=== PATIENT | female | born 1980 | race Caucasian/White ===

== ENCOUNTER 2021-08-17 12:13 | Emergency (ER) | payer OTHER, SELFPAY ==
[2021-08-17 12:32] VITALS: BP 123/82; PULSE 88; RESP 18; TEMP 37.2; O2SAT 97
[2021-08-17] MEDS: LORazepam (*CRX) 0.5 MG TABLET PO (13:56)
--- NOTE | 2021-08-17 14:05 | PC.NURSE ---
I & D supplies gathered. pt medicated per order. at bedside.
--- NOTE | 2021-08-17 15:44 | ED.GENADULT ---
HPI - General Adult General Chief complaint: Skin/Abscess/Foreign Body Stated complaint: abcess Time Seen by Provider: 08/17/21 12:35 Source: patient Mode of arrival: ambulatory Limitations: no limitations History of Present Illness HPI narrative: Patient presents for evaluation of painful lesion to the left axillary region for awhile . She cannot provide me a specific time of symptom onset. She cannot identify any precipitating event. Pain is sharp, 10/10 in severity and without radiation. She states over the course of the past few days it became larger in size. She states that the area is actively draining purulent material. No fever, chills, nausea, vomiting. She is not diabetic. She has not tried any therapies to assist with her symptoms. No additional complaints or concerns. Related Data Allergies Allergy/AdvReac Type Severity Reaction Status Date / Time prednisone Allergy Unknown Nausea and Verified 08/17/21 12:39 Vomiting Review of Systems Review of Systems: CONSTITUTIONAL: Denies fever, chills, or sweats. EYES: Denies visual changes, redness, or discharge. ENT: Denies rhinorrhea, congestion, sore throat, or otalgia. CARDIOVASCULAR: Denies chest pain, palpitations, or edema. RESPIRATORY: Denies cough or dyspnea. GASTROINTESTINAL: Denies abdominal pain, nausea, vomiting, or diarrhea. GENITOURINARY: Denies dysuria or hematuria. SKIN: Reports draining lesion to the left axilla with associated redness MUSCULOSKELETAL: Reports pain to left axillary region. Denies back pain, joint pain NEUROLOGIC: Denies headache, numbness, dizziness, or weakness. PSYCHIATRIC: Denies anxiety or depression. [facility] Past Medical History Medical History No pertinent past medical history Surgical History Surgical History (Updated 08/17/21 @ 17:00 by KATHLEEN Taylor, TANNER) History of History of tonsillectomy History of tubal ligation Family History Family History Mother No pertinent family history Social History Social History Alcohol intake: never Substance use: never Gender identity (if verbalized by the patient): Female Sexual Orientation (if Verbalized by the Patient): Straight or Heterosexual Spiritual care concerns: No Exam Narrative: GENERAL: Well-appearing, well-nourished, and in no acute distress. HEAD: Normocephalic, atraumatic. EYES: PERRLA and EOMI. ENT: Nares clear, no rhinorrhea or epistaxis. Mucous membranes moist. Oropharynx without tonsillar hypertrophy exudate or other lesions. Bilateral TMs pearly [place] nonbulging NECK: Supple. No adenopathy or masses. No carotid bruits or JVD CHEST: Clear to auscultation. No respiratory distress. No wheezes rales or rhonchi HEART: Regular rate and rhythm. No murmur heard. Normal peripheral pulses. ABDOMEN: Soft, nontender, nondistended, normal active bowel sounds. EXTREMITIES: Normal range of motion. No edema. SKIN: Approximately 5 cm area of raised erythema with underlying fluctuance which is actively draining purulent fluid. There is approximately 8 cm area of surrounding induration. Area is tender to palpation. NEURO: No focal deficits. Alert and oriented x3. PSYCH: Normal mood and affect. Course Course Emergency Course: This is a 41-year-old female that presented with complaints of a painful swollen lesion to the left axillary region which is now erythematous and actively draining. On physical exam. She has a cutaneous abscess. After obtaining informed consent I&D was performed and this was actually an infected sebaceous cyst. Wound was packed. Patient was advised she needs to follow-up with surgery or dermatology to have cyst wall removed after completion of antibiotic therapy. Patient will be discharged with Bactrim, Keflex, [place] and should return for any
--- NOTE | 2021-08-17 16:33 | PC.NURSE ---
auto appraiser at bedside for I & D
[2021-08-17] MEDS: MORPHINE SULFATE (*CRX) 2 MG/ML INJ (16:57)
[2021-08-17 17:32] VITALS: BP 148/74; PULSE 89; RESP 18; O2SAT 99
== END 2021-08-17 17:33 | disposition home or self-care (01) ==
PROVIDERS: Emergency Provider Nurse Practitioner; PCP Nurse Practitioner Family
DX: L72.3 Sebaceous cyst (principal); L08.9 Local infection of the skin and subcutaneous tissue, unspecified
CPT/HCPCS: 10061; 87070; 87205; 99283; A9270; J2270

== ENCOUNTER 2022-05-25 08:56 | Outpatient (CLI) | payer OTHER, SELFPAY ==
--- NOTE | 2022-05-25 11:30 | NEURO_ITS ---
Impression: # Complains of numbness of hands. # Bilateral Carpal Tunnel Syndrome, right more than left. # No ulnar neuropathy. # Needle/EMG exam not requested. Nerve Conduction Studies Anti Sensory Summary Table Stim Site NR Peak (ms) P-T Amp (?V) Site1 Site2 Delta-P (ms) Dist (cm) Calin (m/s) Left Median Anti Sensory (2-3nd Digit) Wrist 3.9 47.9 Wrist 2-3nd Digit 3.9 14.0 36 Wrist 4.2 63.2 Wrist 2-3nd Digit 3.9 14.0 36 Right Median Anti Sensory (2-3nd Digit) Wrist 4.8 51.4 Wrist 2-3nd Digit 4.8 14.0 29 Wrist 5.0 34.4 Wrist 2-3nd Digit 4.8 14.0 29 Left Radial Anti Sensory (Base 1st Digit) Wrist 1.7 56.6 Wrist Base 1st Digit 1.7 0.0 Right Radial Anti Sensory (Base 1st Digit) Wrist 2.0 43.7 Wrist Base 1st Digit 2.0 0.0 Left Ulnar Anti Sensory (5th Digit) Wrist 2.4 74.5 Wrist 5th Digit 2.4 14.0 58 Right Ulnar Anti Sensory (5th Digit) Wrist 2.5 71.7 Wrist 5th Digit 2.5 14.0 56 Motor Summary Table Stim Site NR Onset (ms) O-P Amp (mV) Site1 Site2 Delta-0 (ms) Dist (cm) Calin (m/s) Left Median Motor (Abd Poll Brev) Wrist 3.9 2.4 Elbow Wrist 4.5 27.0 60 Elbow 8.4 4.4 Right Median Motor (Abd Poll Brev) Wrist 5.1 3.5 Elbow Wrist 3.5 23.0 66 Elbow 8.6 3.0 Left Ulnar Motor (Abd Dig Minimi) Wrist 2.2 6.2 A Elbow Wrist 4.5 27.0 60 A Elbow 6.7 5.7 Right Ulnar Motor (Abd Dig Minimi) Wrist 2.2 6.9 A Elbow Wrist 4.5 27.0 60 A Elbow 6.7 4.7 F Wave Studies NR F-Lat (ms) L-R F-Lat (ms) Left Median (Mrkrs) (Abd Poll Brev) 26.39 2.54 Right Median (Mrkrs) (Abd Poll Brev) 28.92 2.54 Left Ulnar (Mrkrs) (Abd Dig Min) 25.43 0.00 Right Ulnar (Mrkrs) (Abd Dig Min) 25.43 0.00 MTDD
== END 2022-05-25 08:57 | disposition home or self-care (01) ==
PROVIDERS: PCP Nurse Practitioner Family; Visit Provider Physician Assistant
DX: R20.2 Paresthesia of skin (principal); G56.03 Carpal tunnel syndrome, bilateral upper limbs
CPT/HCPCS: 95911

== ENCOUNTER 2022-09-18 22:57 | Emergency (ER) | payer OTHER, SELFPAY ==
--- NOTE | ~2022-09-18 | CT_ITS ---
EXAMINATION: CT abdomen pelvis w con DATE: 09/19/2022 02:58 INDICATION: Epigastric and upper abdominal pain TECHNIQUE: Computed tomography (CT) of the abdomen and pelvis was performed with 100 cc Omnipaque 350 intravenous contrast. The dose-length product was 1376.34 mGy-cm. Automated exposure control and ite rative reconstruction technique were employed. COMPARISON: CT dated 08/12/2017. FINDINGS: There are groundglass opacities in the lung bases. Heart size normal. No significant pleura l or pericardial effusion. Status post cholecystectomy with expected prominence of the bile ducts. Th e liver, spleen, pancreas, adrenal glands and kidneys are unremarkable. Status post cholecystectomy. Ureters are normal in course and caliber. No hydronephrosis. There are thickened loops of jejunum wit h mucosal enhancement, suspicious for enteritis. No obstruction. Colonic diverticulosis without evide nce for diverticulitis. No free air or free fluid. The spleen, pancreas, adrenal glands are unremarka ble. No significant vascular abnormality. No lymphadenopathy. IMPRESSION: 1. Thickened enhancing loops of jejunum, suspicious for enteritis. Clinically correlate. Reviewed, dictated and finalized at location A. MACHINE OPERATOR IMPRESSION: 1. Thickened enhancing loops of jejunum, suspicious for enteritis. Clinically c hardy.
[2022-09-18 23:51] VITALS: BP 112/72; PULSE 77; TEMP 35.8; O2SAT 97
[2022-09-19] VITALS: BP 109/63; PULSE 84; RESP 22; O2SAT 100
--- NOTE | 2022-09-19 | PC.NURSE ---
This RN brought pt. back to room via wheelchair. RN instructed pt. pt. needs to get into bed. pt. not answering RN. pt. family member is calling pt. name, pt. not answering. RN sternal rubbed pt. pt. responded to painful stimuli and safely assisted to bed
[2022-09-19] MEDS: SODIUM CHLORIDE 0.9% IV 1,000 ML 999 ML IV CONT (00:36)
[2022-09-19] MEDS: ONDANSETRON INJ 4 MG/2 ML VIAL IV PUSH (00:36)
[2022-09-19] MEDS: MORPHINE SULFATE (*CRX) 4 MG/ML INJ IV PUSH ×2 (00:37→02:19)
[2022-09-19 00:45] LABS: Hematocrit 50.4 % (37.0-47.0); Hemoglobin 16.8 g/dL (12.0-15.0); Immature Platelet Fraction Pct 2.4 % (0.9-11.2); Mean Corpuscular HGB Conc 33.3 g/dl (32-36); Mean Corpuscular Hemoglobin 30.3 pg (26-34); Mean Platelet Volume 9.5 fl (7.4-10.4); Platelet Count Result 273 k/mm3 (150-375); Red Blood Count 5.54 M/mm3 (4.2-5.4); Red Cell Distribution Width 13.8 % (11.5-14.5); White Blood Count 18.3 K/mm3 (4.5-10.0)
[2022-09-19 00:59] LABS: Alanine Aminotransferase 24 U/L (6-35); Albumin Level 4.5 g/dL (3.5-5.1); Alkaline Phosphatase 66 U/L (38-126); Anion Gap 5 mmol/L (8-16); Aspartate Amino Transferase 24 U/L (14-36); Bilirubin,Total 0.9 mg/dL (0.2-1.3); Blood Urea Nitrogen 20 mg/dL (7-17); Calcium 8.8 mg/dL (8.4-10.2); Carbon Dioxide 28 mmol/L (22-30); Chloride 101 mmol/L (98-107); Estimated CRCL calculation 91 ml/min; Estimated Glomerular Filt Rate > 60; Ethanol < 10 mg/dL (<10); Glucose 137 mg/dL (65-110); Lipase 42 U/L (23-300); Potassium 4.1 mmol/L (3.4-5.0); Sodium 134 mmol/L (137-145)
[2022-09-19 01:28] LABS: Band Neutrophils Percent 23 % (0-6); Eosinophils Absolute Manual 0.18 K/mm3 (0.02-0.5); Eosinophils Percent Manual 1 % (0-4); Lymphocytes Absolute Manual 0.73 K/mm3 (1.1-4.5); Monocytes Absolute Manual 0.36 K/mm3 (0.1-0.90); Monocytes Percent Manual 2 % (3-9); Myelocytes Percent 1 %; Neutrophils Absolute Manual 16.83 K/mm3 (1.7-7.2); Neutrophils Percent Manual 69 % (46-73); Total Cells Counted 100
[2022-09-19 01:29] LABS: Platelet Estimate Adequate (Adequate)
[2022-09-19 01:30] VITALS: BP 132/87; PULSE 102; RESP 14; O2SAT 100
[2022-09-19 01:30] LABS: Atypical Lymphocytes Present; Schistocytes None Seen (NORMAL)
--- NOTE | 2022-09-19 01:52 | PC.NURSE ---
pt. requesting pain medications. ERP made aware. no further orders at this time
[2022-09-19] MEDS: DICYCLOMINE HCL INJ 20 MG/2 ML VIAL IM (02:08)
[2022-09-19 02:16] LABS: Add Urine Microscopic? YES; Appearance Urine Clear (Clear); Bilirubin Urine Negative (Negative); Blood Urine 2+ (Negative); Color Urine Brown (Yellow); Glucose Urine UA Negative (Negative); Ketones Urine Negative (Negative); Leukocyte Esterase Ur Negative LEU/UL (Negative); Nitrate Urine Negative (Negative); Protein Urine Trace mg/dL (Negative); Specific Grav Ur 1.025 (1.001-1.035); Urobilinogen Urine 0.2 mg/dL (<2.0); pH Urine 5.5 (5.0-9.0)
[2022-09-19 02:19] LABS: Bacteria Urine Trace /hpf; Mucus Urine Few /lpf; Squamous Epithelial Cell Urine Occasional /hpf (Few); WBC Urine 0-3 /hpf
[2022-09-19] MEDS: PROMETHAZINE HCL 25 MG/ML AMPUL 12.5 MG IV PUSH (02:19)
[2022-09-19 03:07] VITALS: BP 130/74; PULSE 100; RESP 19; O2SAT 99
--- NOTE | 2022-09-19 04:18 | ED.GENADULT ---
HPI - General Adult General Chief complaint: Nausea/Vomiting/Diarrhea Stated complaint: N & V Possible ETOH Time Seen by Provider: 09/19/22 00:15 History of Present Illness HPI narrative: Patient is a 42-year-old female who presents ER with sudden onset nausea and vomiting. Associate with diarrhea. Reports a family member had similar symptoms that lasted 24 hours. No blood in her stool. Denies fevers or chills or sweats. Has diffuse abdominal cramping. No aggravating or alleviating factors. Related Data Allergies Allergy/AdvReac Type Severity Reaction Status Date / Time prednisone Allergy Unknown Nausea and Verified 08/17/21 12:39 Vomiting Review of Systems Review of Systems: All systems reviewed & are unremarkable except as noted in HPI and below Constitutional: Constitutional: Denies chills, Reports fatigue and Denies fever(s) ENT: Denies nasal congestion and Denies sore throat Cardiovascular: Cardiovascular: Denies chest pain, Denies rapid heart rate and Denies radiating jaw, neck or arm pain Respiratory: Respiratory: Denies cough and Denies dyspnea Gastrointestinal: Gastrointestinal: Reports abdominal pain, Reports diarrhea, Reports nausea and Reports vomiting PMFSH Past Medical History Medical History No pertinent past medical history Surgical History Surgical History (Updated 08/17/21 @ 17:00 by Pravin Wilde, KATHLEEN, ) History of History of tonsillectomy History of tubal ligation Family History Family History Mother No pertinent family history Social History Social History Alcohol intake: never Substance use: never Gender identity (if verbalized by the patient): Female Sexual Orientation (if Verbalized by the Patient): Straight or Heterosexual Spiritual care concerns: No Exam Narrative: GENERAL: Uncomfortable-appearing, well-nourished, and in mild distress. HEAD: Normocephalic, atraumatic. ENT: Mucous membranes moist. NECK: Supple. CHEST: Clear to auscultation. No respiratory distress. HEART: Regular rate and rhythm. Normal peripheral pulses. ABDOMEN: Soft, diffusely tender without guarding, nondistended. EXTREMITIES: Normal range of motion. No edema. SKIN: Warm, dry, no rash. NEURO: Alert and oriented x3. PSYCH: Normal mood and affect. Course Course Emergency Course: Patient received multiple rounds of pain medicine and is now sleeping. CT evaluation shows no acute surgical or life-threatening process within the abdomen. Patient has been hydrated. Patient felt appropriate for discharge home. Vital Signs Vital signs: Vital Signs Temperature 96.4 F L 09/18/22 23:51 Pulse Rate 77 09/18/22 23:51 Blood Pressure 112/72 09/18/22 23:51 Pulse Oximetry 97 09/18/22 23:51 Oxygen Delivery Room Air 09/18/22 23:51 Temperature 96.4 F L 09/18/22 23:51 Pulse Rate 100 09/19/22 03:07 Respiratory Rate 19 09/19/22 03:07 Blood Pressure 130/74 09/19/22 03:07 Pulse Oximetry 99 09/19/22 03:07 Oxygen Delivery Room Air 09/18/22 23:51 Medical Decision Making Vital Signs Vital Signs: Vital Signs Temperature 96.4 F L 09/18/22 23:51 Pulse Rate 77 09/18/22 23:51 Blood Pressure 112/72 09/18/22 23:51 Pulse Oximetry 97 09/18/22 23:51 Oxygen Delivery Room Air 09/18/22 23:51 Temperature 96.4 F L 09/18/22 23:51 Pulse Rate 100 09/19/22 03:07 Respiratory Rate 19 09/19/22 03:07 Blood Pressure 130/74 09/19/22 03:07 Pulse Oximetry 99 09/19/22 03:07 Oxygen Delivery Room Air 09/18/22 23:51 Lab Data 09/19/22 00:34 09/19/22 00:34 Labs: Lab Results 09/19/22 09/19/22 09/19/22 Range/Units 00:34 00:34 00:34 WBC 18.3 H (4.5-10.0) K/mm3 RBC 5.54 H (4.2-5.4) M/mm3 Hgb 16.8 H (
== END 2022-09-19 04:45 | disposition home or self-care (01) ==
PROVIDERS: Emergency Provider Emergency Medicine; PCP Physician Assistant
DX: K52.9 Noninfective gastroenteritis and colitis, unspecified (principal)
CPT/HCPCS: 36415; 74177; 80053; 80307; 81001; 83690; 85025; 85055; 96361; 96372; 96374; 96375; 96376; 99284; J0500; J2270; J2405; J2550; J7030; Q9967

== ENCOUNTER 2022-10-26 07:56 | Emergency (ER) | payer OTHER, SELFPAY ==
--- NOTE | ~2022-10-26 | US_ITS ---
EXAMINATION: US pelvic complete w TV DATE: 10/26/2022 11:29 INDICATION: Ovarian mass. TECHNIQUE: Multiple transabdominal and transvaginal sonographic images of the pelvis were obtained. COMPARISON: CT abdomen and pelvis 10/26/2022 FINDINGS: TRANSABDOMINAL ULTRASOUND: The uterus measures 10.2 x 4.4 x 5.8. There is no free fluid in the pelvis. TRANSVAGINAL ULTRASOUND: The endometrial complex measures 4 mm in thickness. The right ovary 2.9 x 2.0 x 2.0 cm. There is a 2. 9 cm hypoechoic mass in the right adnexa. There is vascular flow in right ovary. The left ovary is no t visualized. IMPRESSION: 1. 2.9 cm hypoechoic mass in the right adnexa, most likely a hemorrhagic cyst. Pelvis ultrasound is r ecommended in 6-12 weeks. Reviewed, dictated and finalized at location A. ER SORTER IMPRESSION: 1. 2.9 cm hypoechoic mass in the right adnexa, most likely a hemorrhagic cyst. Pelvis ultrasound is recommended in 6-12 weeks.
--- NOTE | ~2022-10-26 | CT_ITS ---
EXAMINATION: CT abdomen pelvis w con DATE: 10/26/2022 09:53 INDICATION: Generalized abdominal pain. Nausea and vomiting. TECHNIQUE: Computed tomography (CT) of the abdomen and pelvis was performed with 100 mL Omnipaque 350 intravenous contrast. Automated exposure control and iterative reconstruction technique were employe d. The dose-length product was 997.31 mGy-cm. COMPARISON: CT abdomen and pelvis 09/19/2022 FINDINGS: The visualized portions of the lung bases demonstrate mild atelectasis. No pleural effusion . The heart size is normal. No pericardial effusion. The liver and gallbladder are normal. There are changes of cholecystectomy. The pancreas, adrenal glands, and right kidney are normal. There is a 4 m m cyst in left kidney. There is diverticulosis of the colon without evidence of diverticulitis. There are no dilated loops of bowel. The appendix is normal. There are no pathologically enlarged lymph no daljit. There is no free intraperitoneal fluid. There is a 3.2 cm mass in right ovary. There is mild tho racic spondylosis. IMPRESSION: 1. 3.2 cm mass in right ovary, most likely a hemorrhagic cyst. Consider ultrasound. Reviewed, dictated and finalized at location D. PTIC METEOROLOGIST IMPRESSION: 1. 3.2 cm mass in right ovary, most likely a hemorrhagic cyst. Consider ultraso und.
[2022-10-26 07:55] VITALS: BP 108/80; PULSE 94; RESP 15; TEMP 36.6; O2SAT 100
[2022-10-26] MEDS: ONDANSETRON INJ 4 MG/2 ML VIAL IV PUSH (08:18)
[2022-10-26] MEDS: SODIUM CHLORIDE 0.9% IV 1,000 ML 999 ML IV CONT (08:18)
[2022-10-26] MEDS: MORPHINE SULFATE (*CRX) 4 MG/ML INJ IV PUSH ×2 (08:19→09:21)
[2022-10-26 08:37] LABS: Basophils Percent Auto 0.1 % (0.2-1.2); Eosinophils Absolute Auto 0.1 K/mm3 (0-0.3); Eosinophils Percent Auto 0.5 % (0-4.4); Hematocrit 45.5 % (37.0-47.0); Hemoglobin 15.1 g/dL (12.0-15.0); Immature Granulocyte Absolute 0.09 K/mm3 (0.00-0.031); Immature Granulocyte Percent A 0.6 % (0-0.5); Immature Platelet Fraction Pct 2.1 % (0.9-11.2); Lymphocytes Absolute Auto 1.05 K/mm3 (0.9-3.2); Lymphocytes Percent Auto 7.2 % (18.3-44.2); Mean Corpuscular HGB Conc 33.2 g/dl (32-36); Mean Corpuscular Hemoglobin 30.4 pg (26-34); Mean Corpuscular Volume 91.5 fl (80-100); Mean Platelet Volume 9.2 fl (7.4-10.4); Monocytes Absolute Auto 0.7 K/mm3 (0.1-0.6); Monocytes Percent Auto 4.5 % (2.6-8.5); Neutrophils Absolute Auto 12.7 K/mm3 (1.3-6.7); Neutrophils Percent Auto 87.1 % (45.5-73.1); Platelet Count Result 265 k/mm3 (150-375); Red Blood Count 4.97 M/mm3 (4.2-5.4); Red Cell Distribution Width 14.3 % (11.5-14.5); White Blood Count 14.6 K/mm3 (4.5-10.0)
--- NOTE | 2022-10-26 08:39 | ED.ABDPAIN ---
HPI - Abdominal Pain General Chief Complaint: Abdominal Pain Stated Complaint: abd pain History of Present Illness HPI narrative: Patient is a 42-year-old female who presents ER with nausea/vomiting/diarrhea. Began yesterday evening at 5 PM. No fevers or chills or sweats. No known sick contacts. She reports she is on day 10 of COVID. She has no respiratory complaints. Had not been having diarrhea previously with her COVID infection. She is found no alleviating factors. Related Data Allergies Allergy/AdvReac Type Severity Reaction Status Date / Time prednisone AdvReac Unknown Nausea and Verified 10/26/22 08:18 Vomiting Review of Systems Review of Systems: All systems reviewed & are unremarkable except as noted in HPI and below Constitutional: Constitutional: Denies chills, Reports fatigue and Denies fever(s) ENT: Denies nasal congestion and Denies sore throat Cardiovascular: Cardiovascular: Denies chest pain Respiratory: Respiratory: Denies cough and Denies dyspnea Gastrointestinal: Gastrointestinal: Reports abdominal pain (Cramping), Reports diarrhea, Reports nausea and Reports vomiting Genitourinary: Genitourinary: Denies nocturia and Denies dysuria [facility] Past Medical History Medical History No pertinent past medical history Surgical History Surgical History (Updated 08/17/21 @ 17:00 by Pravin Wilde, KATHLEEN, ) History of History of tonsillectomy History of tubal ligation Family History Family History Mother No pertinent family history Social History Social History Alcohol intake: never Substance use: never Gender identity (if verbalized by the patient): Female Sexual Orientation (if Verbalized by the Patient): Straight or Heterosexual Spiritual care concerns: No Exam Narrative: GENERAL: Well-appearing, well-nourished, and in no acute distress. HEAD: Normocephalic, atraumatic. NECK: Supple. CHEST: Clear to auscultation. No respiratory distress. HEART: Regular rate and rhythm. Normal peripheral pulses. ABDOMEN: Soft, nontender, nondistended. EXTREMITIES: Normal range of motion. No edema. SKIN: Warm, dry, no rash. NEURO: Alert and oriented x3. PSYCH: Normal mood and affect. Course Course Emergency Course: Patient's pain improved significantly but still has occasional cramping. Patient has nausea but no persistent vomiting. Discharge home with supportive care. Discussed ovarian cyst and need for follow-up. Patient and significant other verbalized understanding. Vital Signs Vital signs: Vital Signs Temperature 97.9 F 10/26/22 07:55 Pulse Rate 94 10/26/22 07:55 Respiratory Rate 15 10/26/22 07:55 Blood Pressure 108/80 10/26/22 07:55 Pulse Oximetry 100 10/26/22 07:55 Temperature 97.9 F 10/26/22 07:55 Pulse Rate 86 10/26/22 12:05 Respiratory Rate 14 10/26/22 12:05 Blood Pressure 100/62 10/26/22 12:05 Pulse Oximetry 99 10/26/22 12:05 MDM - Abdominal Pain Lab Data 10/26/22 08:24 10/26/22 08:24 Labs: Lab Results 10/26/22 10/26/22 10/26/22 Range/Units 08:24 08:24 09:03 WBC 14.6 H (4.5-10.0) K/mm3 RBC 4.97 (4.2-5.4) M/mm3 Hgb 15.1 H (12.0-15.0) g/dL Hct 45.5 (37.0-47.0) % MCV 91.5 (80-100) fl MCH 30.4 (26-34) pg MCHC 33.2 (32-36) g/dl RDW 14.3 (11.5-14.5) % Plt Count 265 (150-375) k/mm3 MPV 9.2 (7.4-10.4) fl Immature Gran % (Auto) 0.6 H (0-0.5) % Neut % (Auto) 87.1 H (45.5-73.1) % Lymph % (Auto) 7.2 L (18.3-44.2) % [place] % (Auto) 4.5 (2.6-8.5) % Eos % (Auto) 0.5 (0-4.4) % Baso % (Auto) 0.1 L (0.2-1.2) % Lymph # (Auto) 1.05 (0.9-3.2) K/mm3 [place] # (Auto) 0.7 H (0.1-0.6) K/mm3 Eos # (Auto) 0.1 (0-0.3) K/mm3
[2022-10-26 08:45] LABS: Alanine Aminotransferase 31 U/L (6-35); Albumin Level 3.7 g/dL (3.5-5.1); Alkaline Phosphatase 47 U/L (38-126); Anion Gap 4 mmol/L (8-16); Aspartate Amino Transferase 23 U/L (14-36); Bilirubin,Total 0.6 mg/dL (0.2-1.3); Blood Urea Nitrogen 19 mg/dL (7-17); Calcium 7.9 mg/dL (8.4-10.2); Carbon Dioxide 28 mmol/L (22-30); Chloride 103 mmol/L (98-107); Estimated CRCL calculation 126 ml/min; Estimated Glomerular Filt Rate > 60; Glucose 112 mg/dL (65-110); Lipase 63 U/L (23-300); Sodium 135 mmol/L (137-145)
[2022-10-26 09:16] LABS: Appearance Urine Clear (Clear); Bacteria Urine Trace /hpf; Bilirubin Urine Negative (Negative); Blood Urine Trace-intact (Negative); Color Urine Yellow (Yellow); Glucose Urine UA Negative (Negative); Ketones Urine Negative (Negative); Leukocyte Esterase Ur Negative LEU/UL (Negative); Mucus Urine Rare /lpf; Nitrate Urine Negative (Negative); Protein Urine Negative (Negative); Squamous Epithelial Cell Urine Rare /hpf (Few); Urobilinogen Urine 0.2 mg/dL (<2.0); WBC Urine 0-3 /hpf; pH Urine 8.5 (5.0-9.0)
[2022-10-26 09:28] LABS: Add Urine Microscopic? YES
[2022-10-26 09:57] VITALS: BP 100/66; PULSE 96; RESP 16; O2SAT 100
[2022-10-26 10:57] VITALS: BP 132/92; PULSE 74; RESP 16; O2SAT 100
[2022-10-26] MEDS: DICYCLOMINE HCL INJ 20 MG/2 ML VIAL IM (11:58)
[2022-10-26] MEDS: PROMETHAZINE HCL 25 MG/ML AMPUL 12.5 MG IV PUSH (12:02)
[2022-10-26 12:05] VITALS: BP 100/62; PULSE 86; RESP 14; O2SAT 99
== END 2022-10-26 12:17 | disposition home or self-care (01) ==
PROVIDERS: Emergency Provider Emergency Medicine; PCP Physician Assistant
DX: N83.201 Unspecified ovarian cyst, right side (principal); R11.2 Nausea with vomiting, unspecified; Z86.16 Personal history of COVID-19
CPT/HCPCS: 36415; 74177; 76830; 76856; 80053; 81001; 81025; 83690; 85025; 85055; 96361; 96372; 96374; 96375; 96376; 99284; J0500; J2270; J2405; J2550; J7030; Q9967

== ENCOUNTER 2023-02-25 12:36 | Emergency (ER) | payer OTHER, SELFPAY ==
[2023-02-25 12:43] VITALS: BP 107/68; PULSE 72; RESP 16; TEMP 36.6; O2SAT 99
[2023-02-25 12:47] VITALS: BP 107/68; PULSE 72; RESP 16; TEMP 36.6; O2SAT 99
--- NOTE | 2023-02-25 12:59 | ED.SKABFB ---
HPI - Skin/Abscess/Foreign Bdy General Chief complaint: Wound/Laceration Stated complaint: Insect Bite Time Seen by Provider: 02/25/23 12:59 Source: patient Mode of arrival: ambulatory Limitations: no limitations History of Present Illness HPI narrative: 42 yo F presents with c/o itching, burning pain to insect bite x 1 wk. Not applying any OTC meds to treat symptoms. States started at [place] and spreading, now has pustules . All systems reviewed and negative except as noted above. Related Data Allergies Allergy/AdvReac Type Severity Reaction Status Date / Time prednisone AdvReac Unknown Nausea and Verified 02/25/23 12:45 Vomiting Review of Systems Review of Systems: CONSTITUTIONAL: Denies fever, chills, or sweats. EYES: Denies visual changes, redness, or discharge. ENT: Denies rhinorrhea, congestion, sore throat, or otalgia. CARDIOVASCULAR: Denies chest pain, palpitations, or edema. RESPIRATORY: Denies cough or dyspnea. GASTROINTESTINAL: Denies abdominal pain, nausea, vomiting, or diarrhea. GENITOURINARY: Denies dysuria or hematuria. SKIN: reports red pustular rash from insect bite with itching. MUSCULOSKELETAL: Denies back pain, joint pain, or myalgia. NEUROLOGIC: Denies headache, numbness, or weakness. PSYCHIATRIC: Denies anxiety or depression. All other systems reviewed are negative, except as documented in HPI. [facility] Past Medical History Medical History No pertinent past medical history Surgical History Surgical History (Updated 08/17/21 @ 17:00 by KATHLEEN Taylor, TANNER) History of History of tonsillectomy History of tubal ligation Family History Family History Mother No pertinent family history Social History Social History Alcohol intake: never Substance use: never Gender identity (if verbalized by the patient): Female Sexual Orientation (if Verbalized by the Patient): Straight or Heterosexual Spiritual care concerns: No Comments At time of signature, agree with nursing past medical, surgical, social and family history. There is no relevant family history pertinent to the presenting complaint. Exam Narrative: GENERAL: This is a well-nourished, well-developed patient, in no apparent distress. HEAD: normocephalic, atraumatic. EYES: PERRL. Sclera clear/white. Vision is grossly intact. EARS: External ears normal NOSE: External nose normal NECK: Neck supple, non-tender without lymphadenopathy, masses or thyromegaly. CARDIOVASCULAR: Regular rate and rhythm without murmurs, gallops, or rubs. RESPIRATORY: Clear to auscultation. Breath sounds equal bilaterally. No wheezes, rales, or rhonchi. SKIN: warm, Dry, intact with no suspicious lesions, good texture and turgor. erythematous papular rash to lateral aspect right lower extremity with 2 pustular lesions. no fluctuance or drainage. mild warmth on palpation with tenderness. approx. 2x3cm diameter. NEURO: awake, alert, and oriented to person, place and time. There were no obvious focal neurologic abnormalities. EXTREMITIES: No joint tenderness, effusion, or edema noted. Course Course Level of Care: Express Care Visit Vital Signs Vital signs: Vital Signs Temperature 36.6 C 02/25/23 12:43 Pulse Rate 72 02/25/23 12:43 Respiratory Rate 16 02/25/23 12:43 Blood Pressure 107/68 02/25/23 12:43 Pulse Oximetry 99 02/25/23 12:43 Oxygen Delivery Room Air 02/25/23 12:43 Temperature 36.6 C 02/25/23 12:47 Pulse Rate 72 02/25/23 12:47 Respiratory Rate 16 02/25/23 12:47 Blood Pressure 107/68 02/25/23 12:47 Pulse Oximetry 99 02/25/23 12:47 Oxygen Delivery Room Air 02/25/23 12:47 reviewed MDM - Skin/Abscess/Foreign Bdy MDM Narrative Medical decision making narrative: Patient
== END 2023-02-25 13:02 | disposition home or self-care (01) ==
PROVIDERS: Emergency Provider Nurse Practitioner Family; PCP Family Medicine
DX: S80.861A Insect bite (nonvenomous), right lower leg, initial encounter (principal); W57.XXXA Bitten or stung by nonvenomous insect and other nonvenomous arthropods, initial encounter
CPT/HCPCS: 99213; G0463

== ENCOUNTER 2023-09-21 08:50 | Emergency (ER) | payer OTHER, SELFPAY ==
[2023-09-21 09:03] VITALS: BP 121/73; PULSE 66; RESP 16; TEMP 36.7; O2SAT 99
--- NOTE | 2023-09-21 09:44 | ED.GENADULT ---
HPI - General Adult General Chief complaint: Wound/Laceration Stated complaint: Wound Check Source: patient Mode of arrival: ambulatory Limitations: no limitations History of Present Illness HPI narrative: Patient presents for evaluation of painful lesion to the back for the last week. She noted some purulent drainage from it yesterday. No fever, chills, nausea, vomiting. She is not diabetic. No history of similar symptoms. She rates her pain 7/10 severity, without descriptive quality. She is a current everyday smoker. Related Data Allergies Allergy/AdvReac Type Severity Reaction Status Date / Time prednisone AdvReac Unknown Nausea and Verified 02/25/23 12:45 Vomiting Review of Systems Review of Systems: CONSTITUTIONAL: Denies fever, chills, or sweats. EYES: Denies visual changes, redness, or discharge. ENT: Denies rhinorrhea, congestion, sore throat, or otalgia. CARDIOVASCULAR: Denies chest pain, palpitations, or edema. RESPIRATORY: Denies cough or dyspnea. GASTROINTESTINAL: Denies abdominal pain, nausea, vomiting, or diarrhea. GENITOURINARY: Denies dysuria or hematuria. SKIN: Reports painful lesion to the low back. MUSCULOSKELETAL: Denies back pain, joint pain, or myalgia. NEUROLOGIC: Denies headache, numbness, dizziness, or weakness. PSYCHIATRIC: Denies anxiety or depression. [facility] Past Medical History Medical History Infected sebaceous cyst Infected sebaceous cyst No pertinent past medical history Surgical History Surgical History History of History of tonsillectomy History of tubal ligation Family History Family History Mother No pertinent family history Social History Social History (Updated 09/21/23 @ 10:21 by KATHLEEN Taylor, ) Smoking packs per day: 1 Smoking cigarettes per day: 20.0 Smoking status: Current every day smoker Alcohol intake: never Substance use: never Gender identity (if verbalized by the patient): Female Sexual Orientation (if Verbalized by the Patient): Straight or Heterosexual Spiritual care concerns: No Exam Narrative: GENERAL: Well-appearing, well-nourished, and in no acute distress. HEAD: Normocephalic, atraumatic. EYES: PERRLA and EOMI. ENT: Nares clear, no rhinorrhea or epistaxis. Mucous membranes moist. Oropharynx without tonsillar hypertrophy exudate or other lesions. Bilateral TMs pearly [place] nonbulging NECK: Supple. No adenopathy or masses. No carotid bruits or JVD CHEST: Clear to auscultation. No respiratory distress. No wheezes rales or rhonchi HEART: Regular rate and rhythm. No murmur heard. Normal peripheral pulses. ABDOMEN: Soft, nontender, nondistended, normal active bowel sounds. EXTREMITIES: Normal range of motion. No edema. SKIN: There is an approximately 2.5 cm raised fluctuant lesion to the midline of the low back with overlying flaking skin NEURO: No focal deficits. Alert and oriented x3. PSYCH: Normal mood and affect. Course Course Emergency Course: this is a 43-year-old female who presented for evaluation of a painful lesion to her low back. I and D was performed. This appears to be an infected sebaceous cyst as opposed to simple abscess. Wound culture obtained. Wound was packed. Pt tolerated well. will discharge with Bactrim, Keflex and small quantity of [place]. She should follow up with general surgery to have cyst excision after infection has resolved. She should go to the ER for systemic signs of infection or worsening symptoms. Patient in agreement with plan of care. Level of Care: Express Care Visit Vital Signs Vital signs: Vital Signs Temperature 36.7 C 09/21/23 09:03 Pulse Rate 66 09/21/23 09:03 Respiratory Rate 16 09/21/23 09:03 Blood Pressure 121/73 09/21/23 09:03 Pulse Oxim
== END 2023-09-21 10:37 | disposition home or self-care (01) ==
PROVIDERS: Emergency Provider Nurse Practitioner; PCP Family Medicine
DX: L72.3 Sebaceous cyst (principal); F17.210 Nicotine dependence, cigarettes, uncomplicated
CPT/HCPCS: 10061; 87070; 87205; 99213; G0463

== ENCOUNTER 2023-11-01 02:11 | Day surgery (SDC) | payer OTHER, SELFPAY ==
[2023-10-25 14:29] VITALS: BMI 45.6
--- NOTE | 2023-10-25 14:36 | PC.NURSE ---
Addendum entered by Farideh Ha RN 10/25/23 14:42: PT INSTRUCTED TO USE hIBICLENS SOAP WITH HER SHOWER Original Note: Report to the Outpatient Waiting Room, entrance under the stopover pavilion located off [facility], at time 1000 on date 11/01/23_. Planned Procedure Time: _1200_. Time changes happen often and if your time is changed the preop area will call you the afternoon before. - You and your visitor will be asked to self-screen and do not enter if you have any COVID symptoms. - A mask is optional within the hospital at this time. Patients may have clear liquids (water, carbonated beverages, clear teas, apple juice) until 3 hours prior to surgery with a maximum of 20 ounces. - No food from midnight until time of surgery - Infants may have breast milk until 4 hours before surgery, infant formula 6 hours prior to surgery. - Children will be allowed to drink immediately following surgery. If applicable, please bring a bottle or sippy cup to assist with drinking. Juice, water, soda, and popsicles are readily available. For infants on formula, please bring formula the day of surgery. Pacifiers are allowed. Take the following medications with a SIP of water the morning of surgery: NONE DO NOT STOP ANY OF YOUR OTHER PRESCRIPTION MEDICATIONS PRIOR TO SURGERY ?EXCEPT THE FOLLOWING Medications to discontinue per physician NONE Date to take last dose Please no make-up, nail persian, hairspray, perfume, deodorant, or body powder the day of surgery. No jewelry (including any body piercings) or valuables the day of surgery, leave them at home. Please take a shower or bath the night before, or the morning of, surgery with an antibacterial soap. Wear comfortable, loose fitting clothing. Children are encouraged to wear pajamas. - Jewelry must be removed prior to entering the operating room. Rings and piercings that are not removed may be cut off. - The hospital will not accept responsibility for valuables. - Please leave all valuables, including medications, at home the day of surgery. If you are going home after surgery, a licensed otr tanker truck driver must drive you home. - NO public transportation without another adult if you receive anesthesia. - We recommend that an adult stay with you for 24 hours following discharge. - We also recommend that you do not drive, make important decision, drink alcoholic beverages, or take any drugs that were not prescribed by your health care provider for at least 24 hours after your discharge time. For Pediatric surgeries, we recommend two adults accompany the child home. Follow any additional instructions given to you from your surgeon. If you or anyone in your household have experienced Covid symptoms in the past week, please notify your surgeon or the nurse liaison at the phone number below for possible testing. Telephone instructions given to __PATIENT_and asked if any additional questions and then verbalized understanding. Patient advised to call surgeon office or pre surgery nurse liaison [phone] if any additional questions.
--- NOTE | 2023-11-01 08:27 | WPDANESEPPF ---
Anes - Initial Pre Proc Eval Procedure: Operation Date: 11/01/23 12:00 Proposed Procedures p Excision Back Cyst - Gabriel Pal DO Date/Time: 11/01/23 08:27 Surgeon: Gabriel Pal DO Pre Op Diagnosis: 3 cm back cyst Patient Data Age: 43 Gender: F Height: 1.52 m Weight: 106 kg Allergies Allergy/AdvReac Type Severity Reaction Status Date / Time prednisone AdvReac Unknown Nausea and Verified 11/01/23 10:54 Vomiting Home Medications Medication Instructions Recorded Confirmed Type No Home Medications 10/25/23 10/25/23 History Patient hx anesthesia problems: none Family hx anesthesia problems: none Results Review: All pre-operative results and documents have been reviewed as part of the pre-operative evaluation. [facility] Past Medical History Medical History Infected sebaceous cyst Infected sebaceous cyst No pertinent past medical history Surgical History Surgical History History of History of tonsillectomy History of tubal ligation Family History Family History Other Cerebrovascular accident Diabetes mellitus Hypertension Kidney disease Social History Social History Smoking packs per day: 1 Smoking cigarettes per day: 20.0 Years smoked: 15 Smoking pack-years: 15.00 Smoking status: Current every day smoker Tobacco type: cigarettes Alcohol intake: current Alcohol use details: 3 PER YEAR Substance use: never Living arrangements: with family Gender identity (if verbalized by the patient): Female Sexual Orientation (if Verbalized by the Patient): Straight or Heterosexual Spiritual care concerns: No Anes - Eval Final PreProcedure Day of Procedure 11/01/23 08:27 Patient weight: morbidly obese Heart: regular rate and rhythm Lungs: clear to auscultation Airway: Mallampati scale class II Neurological: alert and oriented Last oral intake: >/= 8 hours ASA classification: III Emergent: no Anesthetic plan: proceed Anesthesia type and monitoring: general GIVS and standard monitoring Results Review: All pre-operative results and documents have been reviewed as part of the pre-operative evaluation. Informed Consent: The patient's anesthetic plan and its attendant risks and benefits were discussed with the patient/family/POA. Questions were solicited and answers provided to the satisfaction of the patient/family/POA.
[2023-11-01 10:03] VITALS: BP 111/70; PULSE 89; RESP 20; TEMP 36.8; O2SAT 98
[2023-11-01] MEDS: LACTATED RINGERS 1,000 ML 30 ML IV CONT (10:45)
--- NOTE | 2023-11-01 11:44 | WPDHPUPDATE1 ---
History and Physical Update Update Date/Time: 11/01/23 11:44 History and Physical has been reviewed, including an updated exam of the patient. There are NO changes in the patient's condition. Risks, benefits, and alternatives have been discussed and questions answered. Patient agrees to proceed with procedure.
--- NOTE | 2023-11-01 11:45 | PM.IMHP ---
H&P: HPI History of Present Illness Date/Time: 11/01/23 11:45 Chief Complaint: back cyst Narrative: 43 yo womanpresents for excision of back cyst. she reports no changes since last seen in office. Review of Systems Review of Systems: All systems reviewed & are unremarkable except as noted in HPI and below Constitutional: Constitutional: Denies chills, Denies fever(s), Denies headache(s) and Denies weight loss Eyes: Eyes: Denies change in vision ENT: Denies dizziness, Denies headache(s), Denies neck mass and Denies throat swelling Cardiovascular: Cardiovascular: Denies chest pain, Denies lightheadedness and Denies dyspnea Respiratory: Respiratory: Denies cough, Denies dyspnea and Denies wheezing Gastrointestinal: Gastrointestinal: Denies abdominal pain, Denies change in bowel habits, Denies nausea and Denies vomiting Genitourinary: Genitourinary: Denies hematuria and Denies dysuria Musculoskeletal: Musculoskeletal: Reports as per HPI Integumentary/Breasts: Skin/Breast: Reports as per HPI Neurologic: Denies dizziness and Denies headache(s) Allergic/Immunologic: Allergic/Immunologic: Denies throat swelling and Denies wheezing PMFSH Past Medical History Medical History Infected sebaceous cyst Infected sebaceous cyst No pertinent past medical history Surgical History Surgical History History of History of tonsillectomy History of tubal ligation Family History Family History Other Cerebrovascular accident Diabetes mellitus Hypertension Kidney disease Social History Social History Smoking packs per day: 1 Smoking cigarettes per day: 20.0 Years smoked: 15 Smoking pack-years: 15.00 Smoking status: Current every day smoker Tobacco type: cigarettes Alcohol intake: current Alcohol use details: 3 PER YEAR Substance use: never Living arrangements: with family Gender identity (if verbalized by the patient): Female Sexual Orientation (if Verbalized by the Patient): Straight or Heterosexual Spiritual care concerns: No Meds Home Medications and Allergies Home Medications Medication Instructions Recorded Confirmed Type No Home Medications 10/25/23 10/25/23 History Allergies Allergy/AdvReac Type Severity Reaction Status Date / Time prednisone AdvReac Unknown Nausea and Verified 11/01/23 10:54 Vomiting Vital Signs Vital Signs - 24 hr 11/01/23 10:03 Temperature 36.8 C Pulse Rate 89 Respiratory Rate 20 Blood Pressure 111/70 Pulse Oximetry 98 Oxygen Delivery Room Air Exam Const: General: no acute distress and alert Orientation/consciousness: patient oriented x3 HENMT: Head: normocephalic and atraumatic Ears: hearing grossly normal bilaterally Face/Nose/Sinus: Normal nares present Mouth: Yes Normal oral and palatal mucosa present Eyes: Periorbital: periorbital findings normal Sclera: sclerae normal EOM: EOMs intact bilaterally Neck: Neck: normal visual inspection, no lymphadenopathy and trachea midline Chest: Chest palpation & inspection: normal inspection of the chest Resp: Effort & Inspection: normal respiratory effort Auscultation: clear to auscultation bilaterally Cardio: Jugular venous distension: no JVD Rate: regular rate Rhythm: regular rhythm Heart sounds: S1 normal heart sound present and S2 normal heart sound present Peripheral pulses: Peripheral pulses 2+ throughout GI: Inspection: normal to inspection GI Palp: Yes Soft to palpation, No Tenderness to palpation present (GI), No Guarding due to palpation present (GI) and No Rebound tenderness present Percussion: Yes normal to percussion Auscultation: normal bowel sounds : General: Yes no CVA tenderness Back/Spine/Pelvis: Back: no CVA te
[2023-11-01] MEDS: ceFAZolin 2 GM/D5W 50 ML 2 GM/50 ML BAG IVPB (11:57)
[2023-11-01] MEDS: LIDO 1%/EPINEPHRINE 1:100,000 50 ML VIAL 20 ML INFILTRATE (12:21)
[2023-11-01] MEDS: BACITRACIN OINTMENT 15 GM TUBE 1 APPLIC TOPICAL (12:22)
--- NOTE | 2023-11-01 12:32 | P.OP_ITS ---
Procedure Note - Detailed Date of Procedure 11/01/23 Pre-op Diagnosis 3 cm back cyst Post-op Diagnosis Same Procedure Performed Excision of 3 cm back cyst Surgeon Gabriel Pal, DO Anesthesia MAC and Local ( 1% lidocaine with epinephrine) Indications this is a 43-year-old woman who presented with a back cyst that had previously become swollen and painful. She had presented to an urgent care and incision and drainage was performed. She healed from this and discussions were made with the patient about treatment options and decision was made to proceed with excision of the 3 cm back cyst. Findings The patient had a 3 cm back cyst in the lower midline lumbar region. The cyst was overlying an old tattoo. The cyst was completely excised and sent to the lab for pathology. No other deep underlying abnormalities were noted. Description of Procedure Procedure as well as risks, benefits, and alternatives were discussed with the patient. Written consent was obtained and placed in chart prior to procedure. Patient was brought back to surgical suite. She was placed in left lateral decubitus position on the operating table. Time-out was done to confirm patient and procedure. IV sedation was then administered by the anesthesia department. Her back area was prepped and draped in sterile fashion using chlorhexidine prep. 1% lidocaine with epinephrine was infiltrated locally around the cyst. A 3 cm elliptical incision was then made around the cyst using a 15 blade scalpel. Sharp dissection was carried down through the dermis into the subcutaneous space using the 15 blade scalpel. The cyst was completely excised intact using the 15 blade scalpel. Electrocautery was then used for hemostasis. The wound bed was then inspected and no other abnormalities were noted. The skin edges w ere then reapproximated using 3-0 nylon vertical mattress interrupted sutures. Bacitracin ointment was applied followed by 4 x 4 gauze and Medipore tape. The patient was then awakened from anesthesia and transferred to recovery. Estimated Blood Loss 5 Pathology Yes ( 3 cm back cyst) Complications No immediate complications Condition Stable Disposition Same day [facility] Billing Surgery - Charge Forward: Surgery Billing
[2023-11-01 12:34] VITALS: BP 92/55; PULSE 76; RESP 14; O2SAT 100
[2023-11-01 13:00] VITALS: BP 92/60; PULSE 77; RESP 14
[2023-11-01 13:29] VITALS: BP 114/64; PULSE 77; RESP 16
== END 2023-11-01 13:32 | disposition home or self-care (01) ==
PROVIDERS: PCP Family Medicine; Visit Provider Surgery
PROC: (CPT 11403; principal; 2023-11-01 12:00)
DX: L72.0 Epidermal cyst (principal); F17.210 Nicotine dependence, cigarettes, uncomplicated; E66.01 Morbid (severe) obesity due to excess calories; Z68.41 Body mass index [BMI] 40.0-44.9, adult; Z98.890 Other specified postprocedural states; Z82.49 Family history of ischemic heart disease and other diseases of the circulatory system
CPT/HCPCS: 11403; 88305; A9270; J0690; J2250; J2704; J3010; J7120

== ENCOUNTER 2023-12-27 08:43 | Emergency (ER) | payer OTHER, SELFPAY ==
--- NOTE | ~2023-12-27 | CT_ITS ---
Non-contrast CT scan of the Abdomen and Pelvis Clinical indication: Flank pain Technique: 2.5 mm axial scans were obtained through the abdomen and pelvis without intravenous or or al contrast. Dose reduction technique was used on this scan by utilizing automated exposure control a nd iterative reconstruction technique. The dose-length product (DLP) was 727.05 mGy-cm. COMPARISON: 10/26/2022 Findings: Images through the lung bases reveal stable 4 mm left lower lobe pulmonary nodule. 2 mm nonobstructing right renal stone present. No left renal stone. No ureteral stone or hydronephros is on either side. The liver, spleen, pancreas, and adrenals appear normal. Cholecystectomy clips are present. There is no aortic aneurysm. There is no evidence of bowel obstruction. Normal appendix. Images through the pelvis were performed. There is no evidence of ascites or lymphadenopathy. Urinary bladder unremarkable. No pelvic mass seen. Impression: 2 mm nonobstructing right renal stone. Reviewed, dictated and finalized at [facility]. Impression: 2 mm nonobstructing right renal stone.
[2023-12-27 08:47] VITALS: BP 151/102; PULSE 83; RESP 18; TEMP 36.6; O2SAT 100
--- NOTE | 2023-12-27 09:00 | ED.ABDPAIN ---
HPI - Abdominal Pain General Chief Complaint: Abdominal Pain Stated Complaint: kidney stones Time Seen by Provider: 12/27/23 08:52 Source: patient Mode of arrival: ambulatory Limitations: no limitations History of Present Illness HPI narrative: Francheska is a 43-year-old female patient presenting to the ER today with complaints of left-sided flank pain x4 days. She reports she does have a history of kidney stones in the past. States that the pain is sharp and constant at this time but gets periods of 10-20 minutes of comfort. Rates her pain 10/10. No associated abdominal pain, groin pain, nausea, vomiting, or diarrhea. Denies any fever or chills. Last bowel movement was yesterday and normal for the patient. Related Data Allergies Allergy/AdvReac Type Severity Reaction Status Date / Time prednisone AdvReac Unknown Nausea and Verified 12/27/23 08:50 Vomiting Review of Systems Review of Systems: Pertinent positives per HPI. Patient denies any fever, chills, rash, headache, visual changes, dizziness, cough, runny nose, sore throat, shortness of breath, chest pain, palpitations, nausea, vomiting, diarrhea, constipation, abdominal pain, or any urinary issues. [facility]LY [facility] Past Medical History Medical History Infected sebaceous cyst Infected sebaceous cyst No pertinent past medical history Surgical History Surgical History History of History of tonsillectomy History of tubal ligation Hx of excision of mass Excision of 3 cm back cyst 11/01/23 Family History Family History Other Cerebrovascular accident Diabetes mellitus Hypertension Kidney disease Social History Social History Smoking packs per day: 1 Smoking cigarettes per day: 20.0 Years smoked: 15 Smoking pack-years: 15.00 Smoking status: Current every day smoker Tobacco type: cigarettes Alcohol intake: current Alcohol use details: 3 PER YEAR Substance use: never Living arrangements: with family Gender identity (if verbalized by the patient): Female Sexual Orientation (if Verbalized by the Patient): Straight or Heterosexual Spiritual care concerns: No Comments At the time of my signature, I reviewed and agree with the nursing past medical, surgical, social, and family history. There is no relevant family history pertinent to the patient complaint. Exam Narrative: General: Well-developed, well nourished, in no apparent distress. Head: Normocephalic, atraumatic. Cardio: Regular rate and rhythm, s1 and s2 normal, no murmur appreciated. Resp: Clear to auscultation bilaterally, no rhonchi, rales, wheezing or rubs. Abdomen: Soft, pliable, bowel sounds present in all quadrants, non-tender to palpation, no organomegly, positive left CVAT tenderness. Course Course Emergency Course: Portions of this record may have been created with voice recognition software. Vital Signs Vital signs: Vital Signs Temperature 36.6 C 12/27/23 08:47 Pulse Rate 83 12/27/23 08:47 Respiratory Rate 18 12/27/23 08:47 Blood Pressure 151/102 H 12/27/23 08:47 Pulse Oximetry 100 12/27/23 08:47 Oxygen Delivery Room Air 12/27/23 08:47 Temperature 36.6 C 12/27/23 08:47 Pulse Rate 83 12/27/23 08:47 Respiratory Rate 18 12/27/23 08:47 Blood Pressure 151/102 H 12/27/23 08:47 Pulse Oximetry 100 12/27/23 08:47 Oxygen Delivery Room Air 12/27/23 08:47 Vital signs reviewed MDM - Abdominal Pain MDM Narrative Medical decision making narrative: At the time of visit patient is resting comfortably on the exam table. Patient appears to be nontoxic. Labs: CBC is unremarkable, chemistry panel is unremarkable, lipase 39, urinalysis shows cloudy urine with 2+ blood and 11-20 r
[2023-12-27] MEDS: SODIUM CHLORIDE 0.9% IV 1,000 ML 999 ML IV CONT (09:20)
[2023-12-27] MEDS: ONDANSETRON INJ 4 MG/2 ML VIAL IV PUSH (09:20)
[2023-12-27 09:21] LABS: Basophils Percent Auto 0.5 % (0.2-1.2); Eosinophils Absolute Auto 0.2 K/mm3 (0-0.3); Hematocrit 45.2 % (37.0-47.0); Hemoglobin 14.5 g/dL (12.0-15.0); Immature Granulocyte Absolute 0.03 K/mm3 (0.00-0.031); Immature Granulocyte Percent A 0.4 % (0-0.5); Lymphocytes Absolute Auto 2.22 K/mm3 (0.9-3.2); Lymphocytes Percent Auto 29.4 % (18.3-44.2); Mean Corpuscular HGB Conc 32.1 g/dl (32-36); Mean Corpuscular Hemoglobin 29.5 pg (26-34); Mean Corpuscular Volume 91.9 fl (80-100); Monocytes Absolute Auto 0.5 K/mm3 (0.1-0.6); Monocytes Percent Auto 6.5 % (2.6-8.5); Neutrophils Absolute Auto 4.6 K/mm3 (1.3-6.7); Neutrophils Percent Auto 61.2 % (45.5-73.1); Platelet Count Result 320 k/mm3 (150-375); Red Blood Count 4.92 M/mm3 (4.2-5.4); Red Cell Distribution Width 13.6 % (11.5-14.5); White Blood Count 7.6 K/mm3 (4.5-10.0)
[2023-12-27] MEDS: MORPHINE SULFATE (*CRX) 4 MG/ML INJ IV PUSH (09:21)
[2023-12-27 09:35] LABS: Appearance Urine Cloudy (Clear); Bacteria Urine 4+ /hpf; Bilirubin Urine Negative (Negative); Blood Urine 2+ (Negative); Color Urine Yellow (Yellow); Glucose Urine UA Negative (Negative); Ketones Urine Negative (Negative); Leukocyte Esterase Ur Negative LEU/UL (Negative); Nitrate Urine Negative (Negative); Non Pathogenic Casts 0-2; Protein Urine Negative (Negative); Specific Grav Ur 1.018 (1.001-1.035); Squamous Epithelial Cell Urine Moderate /hpf (Few); WBC Urine 0-5 /hpf (0-3)
[2023-12-27 09:50] LABS: Alanine Aminotransferase 27 U/L (6-35); Albumin Level 4.1 g/dL (3.5-5.1); Alkaline Phosphatase 67 U/L (38-126); Anion Gap 7 mmol/L (4-12); Aspartate Amino Transferase 32 U/L (14-36); Bilirubin,Total 0.5 mg/dL (0.2-1.3); Blood Urea Nitrogen 5 mg/dL (7-17); Calcium 9.2 mg/dL (8.4-10.2); Carbon Dioxide 25 mmol/L (22-30); Chloride 106 mmol/L (98-107); Estimated CRCL calculation 96 ml/min; Estimated Glomerular Filt Rate > 60; Glucose 96 mg/dL (65-110); Lipase 39 U/L (23-300); Potassium 4.1 mmol/L (3.4-5.0); Sodium 138 mmol/L (137-145)
[2023-12-27 10:05] LABS: Add Urine Microscopic? YES
[2023-12-27 10:52] VITALS: BP 113/83; PULSE 77; RESP 18; O2SAT 100
== END 2023-12-27 11:15 | disposition home or self-care (01) ==
PROVIDERS: Emergency Provider Nurse Practitioner Family; PCP Family Medicine
DX: N30.01 Acute cystitis with hematuria (principal); R10.9 Unspecified abdominal pain; F17.210 Nicotine dependence, cigarettes, uncomplicated
CPT/HCPCS: 36415; 74176; 80053; 81001; 81025; 83690; 85025; 96361; 96374; 96375; 99284; J2270; J2405; J7030

== ENCOUNTER 2024-09-21 17:31 | Emergency (ER) | payer OTHER, SELFPAY ==
[2024-09-21 17:40] VITALS: BP 110/71; PULSE 89; RESP 16; TEMP 36.7; O2SAT 100
--- NOTE | 2024-09-21 17:46 | ED.SKABFB ---
HPI - Skin/Abscess/Foreign Bdy General Chief complaint: Skin/Abscess/Foreign Body Stated complaint: rash on face,arms,hands Time Seen by Provider: 09/21/24 17:33 Source: patient Mode of arrival: ambulatory Limitations: no limitations History of Present Illness HPI narrative: Patient is a 44-year-old female who presents with rash over the last 3 weeks. Pain started on her left forehead with to 2 cm circular patches but has since spread with smaller bumps over forehead and down both sides of her face. Patient also reports same rash to bilateral forearms and tops of hand. Reports they are tender to touch, itchy. Patient has used Aquaphor with no relief along with cortisone cream. Patient states cortisone cream did not help the itch but did not make symptoms worse. Patient denies any new soaps, detergents, since. Patient is not state any where abnormal. Patient does have a cat but the cat stays indoors. Has not used any new makeup or lotions. Related Data Home Medications ?Medication ?Instructions ?Recorded ?Confirmed ?Last Taken ?Type No Home Medications 09/21/24 09/21/24 Unknown History Allergies Allergy/AdvReac Type Severity Reaction Status Date / Time prednisone AdvReac Unknown Nausea and Verified 09/21/24 17:46 Vomiting Review of Systems Review of Systems: All systems reviewed & are unremarkable except as noted in HPI and below Constitutional: Constitutional: Denies body ache(s), Denies chills, Denies fatigue, Denies fever(s), Denies headache(s), Denies malaise and Denies weakness Eyes: Eyes: Denies blurry vision, Denies irritation and Denies loss of vision ENT: Denies otalgia, Denies headache(s), Denies nasal discharge, Denies sinus pain and Denies sore throat Cardiovascular: Cardiovascular: Denies chest pain, Denies irregular heart rhythm and Denies dyspnea Respiratory: Respiratory: Denies dyspnea Gastrointestinal: Gastrointestinal: Denies abdominal pain, Denies melena, Denies hematochezia, Denies diarrhea, Denies nausea and Denies vomiting Musculoskeletal: Musculoskeletal: Denies back pain, Denies myalgias and Denies arthralgias Integumentary/Breasts: Skin/Breast: Reports pruritus and Reports rash Neurologic: Denies headache(s), Denies loss of vision and Denies weakness Psychiatric: Psychiatric: Reports no additional psychiatric complaints Endocrine: Endocrine: Denies fatigue PMFSH Past Medical History Medical History Infected sebaceous cyst Infected sebaceous cyst No pertinent past medical history Surgical History Surgical History Hx of excision of mass Excision of 3 cm back cyst 11/01/23 History of tonsillectomy History of History of tubal ligation Family History Family History Other Cerebrovascular accident Diabetes mellitus Hypertension Kidney disease Social History Social History Smoking packs per day: 1 Smoking cigarettes per day: 20.0 Years smoked: 15 Smoking pack-years: 15.00 Smoking status: Current every day smoker Tobacco type: cigarettes Alcohol intake: current Alcohol use details: 3 PER YEAR Substance use: never Living arrangements: with family Gender identity (if verbalized by the patient): Female Sexual Orientation (if Verbalized by the Patient): Straight or Heterosexual Spiritual care concerns: No Comments At time of signature, agree with nursing past medical, surgical, social and family history. There is no relevant family history pertinent to the presenting complaint. Exam Const: General: cooperative, healthy appearing, comfortable, no acute distress and well nourished Nutritional Appearance: well nourished Orientation/consciousness: patient oriented x3 Limitations: no limitations HENMT: Head: normal to inspection, normocephalic and atraumatic Ears: hearing grossly normal bilaterally and external ears normal Face/Nose/Sinus: Normal external nose present, normal facial exam and face symmetric Face and sinus: normal facial exam and face symmetric Mouth: Yes lip normal Eyes: General: appearance normal, both eyes and all related structures Alignment and Position: alignment normal and position normal Periorbital: periorbital findings normal Eyelids: eyelids normal Pupils: Equal, round and reactive pupils present EOM: EOMs intact bilaterally Neck: Neck: normal visual inspection, full ROM and supple Chest: Chest palpation & inspection: normal inspection of the chest Resp: Effort & Inspection: normal respiratory effort and able to speak in complete sentences Auscultation: clear to auscultation bilaterally Cardio: Rate: regular rate Rhythm: regular rhythm Heart sounds: S1 normal heart sound present and S2 normal heart sound present GI: Inspection: normal to inspection Skin: General skin exam: normal color and no rashes or lesions noted Rashes: rashes noted papules bilateral arm size (0.25 cm), arrangement grouped, borders irregular and indistinct, color red, morphology dome-shaped, surface dry, smooth and with an erythematous base; without crusting and with no discharge and tender; fluctuant not assessed, papules bilateral face size (0.25 cm, two areas of 2cm in diameter patches), arrangement grouped, borders irregular and indistinct, color red, morphology dome-shaped, surface dry, smooth and with an erythematous base; not indurated and without crusting and tender; fluctuant not assessed Neuro: General: patient oriented x3 and moves all extremities Cranial nerves: Yes Equal, round and reactive pupils present Speech: normal speech Gait exam (Neuro): Normal gait present Extrem: General: normal to inspection, full ROM and no edema Psych: Appearance: grossly normal and well kempt Mental Status: mental status grossly normal Speech and movement: Normal speech and movement present Affect: normal affect Attitude: cooperative Thought process: Normal thought process present Course Course Emergency Course: Patient is aware of diagnosis, understands and agrees to treatment plan. Anticipatory guidance given. Patient agrees to follow-up as directed and is aware of reasons to seek care at the emergency department. Portions of this record may have been created with voice recognition software Level of Care: Express Care Visit Vital Signs Vital signs: Vital Signs Temperature 36.7 C 09/21/24 17:40 Pulse Rate 89 09/21/24 17:40 Respiratory Rate 16 09/21/24 17:40 Blood Pressure 110/71 09/21/24 17:40 Pulse Oximetry 100 09/21/24 17:40 Oxygen Delivery Room Air 09/21/24 17:40 Temperature 36.7 C 09/21/24 17:40 Pulse Rate 89 09/21/24 17:40 Respiratory Rate 16 09/21/24 17:40 Blood Pressure 110/71 09/21/24 17:40 Pulse Oximetry 100 09/21/24 17:40 Oxygen Delivery Room Air 09/21/24 17:40 Reviewed Discharge Plan Discharge Clinical Impression: Contact dermatitis Qualifiers: Contact dermatitis type: allergic Contact dermatitis trigger: unspecified trigger Qualified Code(s): L23.9 - Allergic contact dermatitis, unspecified cause Patient Disposition: Home, Self-Care Condition: Stable Instructions: Dermatitis (ED) Additional Instructions: The most important part of your care is follow up with Primary care provider. Take Benadryl 25-50 mg every 6 hours for itching Take Claritin, Zyrtec, or Sonia daily for the next 7 days Take Pepcid 20mg daily for 7 days Take the steroids starting in the morning with food Avoid hot showers, Take cool showers. Wash the area with gentle soap and water only. Use skin cream as prescribed to reduce itchiness Avoid scratching when possible to prevent worsening of the condition and disruption of the skin that could lead to bacterial infection To relieve itching, place a cool washcloth or some ice over the area that itches, rather than scratching Follow up with primary care provider or seek ER if you have trouble breathing, become hoarse, or start wheezing, develop belly cramps, vomiting or feel dizzy. If you are having a hard time finding a physician please call our [facility] liaison at [phone]. Patient Language: Kyrgyz Prescriptions: New famotidine 20 mg tablet 20 mg PO DAILY 14 Days Qty: 14 0RF methylprednisolone 8 mg tablet See Taper PO QAM Qty: 42 0RF Taper: Prednisone Taper from 60 mg;12 days 48 mg DAILY for 2 Days and 0 Hour 40 mg DAILY for 2 Days and 0 Hour 32 mg DAILY for 2 Days and 0 Hour 24 mg DAILY for 2 Days and 0 Hour 16 mg DAILY for 2 Days and 0 Hour 8 mg DAILY for 2 Days and 0 Hour No Action No Home Medications Follow-up/Referrals: John Merino MD [Physician] - 3 Days (Establish care) UNKNOWN,DOCTOR [Primary Care Provider] - Stand Alone Forms: Work/School Release IP
== END 2024-09-21 18:42 | disposition home or self-care (01) ==
PROVIDERS: Emergency Provider Nurse Practitioner Family
DX: L23.9 Allergic contact dermatitis, unspecified cause (principal); F17.210 Nicotine dependence, cigarettes, uncomplicated
CPT/HCPCS: 99213; G0463

== ENCOUNTER 2024-10-08 22:13 | Emergency (ER) | payer OTHER, SELFPAY ==
--- NOTE | ~2024-10-08 | XR_ITS ---
AP and oblique views of the right ribs, and PA chest radiograph Clinical History: Pain Findings: No rib fracture is seen. Osseous alignment is anatomic. Lungs are clear, without focal cons olidation or pleural effusion. Cardiomediastinal contour is within normal limits. Soft tissues are un remarkable. Impression: No rib fracture is seen. Clear lungs. Reviewed, dictated and finalized at [facility]. NITIES PROFESSOR Impression: No rib fracture is seen. Clear lungs.
--- OUTSIDE RECORDS SUMMARY | 2024-10-08 22:16 | XMS_ITS | Clinical Summary ---
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 Role Phone Unavailable Primary Care Provider Unavailabl e Social History Tobacco Use Types Packs/Day Years Used Date Smoking Tobacco: Never Assessed Comments Unknown Sex and Gender Information Value Date Recorded Sex Assigned at Not on file Legal Sex Female 8:20 PM CDT Gender Identity Not on file Sexual Orientation Not on file Last Filed Vital Signs Vital Sign Reading Time Taken Comments Blood Pressure 98/68 01/25/2014 3:50 PM CDT Pulse - - Temperature - - Respiratory Rate - - Oxygen Saturation - - Inhaled Oxygen Concentration - - Weight 93 kg (205 lb) 01/25/2014 3:49 PM CDT Height 157.5 cm (5' 2 ) 01/25/2014 3:49 PM CDT Body Mass Index 37.49 01/25/2014 3:49 PM CDT Plan of Treatment Health Maintenance Due Date Last Done Comments Cervical Cancer Screening Pa p Smear (Age 30 to 64) Every 3 Years 1981 Annual Physical 1984 Hepatitis C 1999 DTaP, Tdap and Td Vaccines ( 1 - Tdap) 2000 Hepatitis B Vaccines (1 of 3 - 19+ 3-dose series) 2000 Cervical Cancer Screening Pa p with HPV Testing (Age 30 to 64) Every 5 Years 2011 Cervical Cancer Screening with HPV 2011 Mammogram Screening 2021 COVID-19 Vaccine (2023-2 5 season) 2024 Influenza Adult (#1) 2024 HPV Vaccines Aged Out No longer eligi ble based on patient's age to complete this topic Meningococcal B Vaccine Aged Out No l onger eligible based on patient's age to complete this topic Meningococcal Vaccine Aged Out No lorne dominique eligible based on patient's age to complete this topic Pneumococcal Vaccine: Pediat rics (0 to 5 Years) and At-Risk Patients (6 to 64 Years) Aged Out No longer eligible b ased on patient's age to complete this topic RSV Immunizations Under 20 Months Aged Out No longer eligible based on patient's age to complete this topic
--- OUTSIDE RECORDS SUMMARY | 2024-10-08 22:16 | XMS_ITS | Patient Health Summary ---
Author Organization [facility] [employer] Address [address] [place] [address] Care Team Providers Care Printing Specialist Name Role Phone Melissa Taylor PA-C Primary Care Provider [phone] Note from [facility],non-owned Affiliates and Associated Physician Practices is amultiple site organization consisting of ambulatory clinics and hospital sitesin [place], [place], [place] and [place]. This disclosure is being madepursuant to the Care Everywhere program and may not contain all information available regarding this patient. Last updated 18.[facility] [employer] Allergies No known active allergies Medications * Be aware that medications may not be up to date on this document. Alwaysverify current medications with the patient. * gabapentin (NEURONTIN) 400 MG capsule Take 400 mg by mouth. Two tabs q four hours while awake. * Acetaminophen-Caffeine (EXCEDRIN ASPIRIN FREE PO) Take 1 Tab by mouth. q 4 hours * SUMAtriptan (IMITREX) 100 MG tablet Take 100 mg by mouth once as needed. * venlafaxine XR 24hr (EFFEXOR XR) 150 MG capsule Take 150 mg by mouth daily with breakfast. * Multiple Vitamin (MULTI-VITAMIN DAILY PO) Take 1 Tab by mouth once daily. * Ascorbic Acid (VITAMIN C) 1000 MG TABS Take 1,000 mg by mouth once daily. * Dalzell-3 Fatty Acids (FISH OIL BURP-LESS) 1000 MG CAPS Take 1 Cap by mouth three times daily before meals and at bedtime. * psyllium (METAMUCIL) 48.57 % powder Take 1 Cap by mouth. One tablespoon daily * meclizine (ANTIVERT) 25 MG tablet Take 25 mg by mouth 3 times daily as needed. * diphenhydrAMINE (BENADRYL) 25 MG tablet Take by mouth every 4 hours as needed. * Ricmwjotxo-JOMG-Cmowggxd 50-300-40 MG CAPS Take 1 Cap by mouth once daily as needed. * lisinopril 10 MG TABS 20 mg, hydrochlorothiazide 25 MG TABS 12.5 mg Take by mouth once daily. * Vit-Fe Fumarate-FA ( VITAMIN) 28-0.8 MG tablet Take 1 Tab by mouth once daily. Active Problems Problem Noted Date Diagnosed Date H/O delivery, currently 013 Fibromyalgia 06/09/2012 Hypertension, essential 06/09/2012 Depression 06/09/2012 Hypothyroidism 06/09/2012 IBS (irritable bowel syndrome) 06/09/2012 H/O migraine 06/09/2012 H/O: section 10/01/2009 Tobacco use disorder 10/01/2009 Bartholin's cyst 10/01/2009 Syphilis Resolved Problems Problem Noted Date Diagnosed Date Resolved Date PROM (premature rupture of membranes) 10/02/2009 10/04/2009 Threatened labor 10/01/200907/2010 Social History Tobacco Use Types Packs/Day Years Used Date Smoking Tobacco: Every Day Cigarettes 0.5 10 Tobacco Cessation:Ready to Q uit: Not Asked; Counseling Given: Not Answered Alcohol Use Standard Drinks/Week Comments No 0 (1 standard drink = 0.6 oz pur e alcohol) Sex and Gender Information Value Date Recorded Sex Assigned at Not on file Gender Identity Not on file Sexual Orientation Not on file Last Filed Vital Signs Vital Sign Reading Time Taken Comments Blood Pressure 92/62 01/10/2013 1:48 PM CDT Pulse 96 01/10/2013 1:48 PM CDT Temperature 36.1 C (97 F) 10/04/2009 7:50 AM [facility] Respiratory Rate 18 01/10/2013 1:48 PM CDT Oxygen Saturation 94% 10/03/2009 2:50 PM [facility] Inhaled Oxygen Concentration 21% 10/04/2009 2 :06 AM [facility] Weight 99.8 kg (220 lb) 01/10/2013 1:48 PM CDT Height 157.5 cm (5' 2 ) 01/10/2013 1:48 PM CDT Body Mass Index 40.24 01/10/2013 1:48 PM CDT Procedures * SONOGRAM - COMPLETE(Performed 01/10/2013) Performed for Syphilis, H/O: section, Tobacco use disorder, Bartholin's cyst, H/O delivery, currently (HCC) * PATHOLOGY/CYTOLOGY REPORT ORDER(Performed 10/09/2009) * LAB RESULTS ORDER(Performed 10/09/2009) * IMAGING/RADIOLOGY/XRAY RESULTS ORDER(Performed 10/09/2009) * CBC W AUTO DIFFERENTIAL(Performed 10/04/2009) Performed for [facility] * KLEIHAUER BETKE STAIN(Performed 10/03/2009) Performed for [facility] * BLOOD GASES CORD ARTERIAL(Performed 10/03/2009) Performed for [facility] * BLOOD GASES CORD VIANNEY(Performed 10/03/2009) Performed for [facility] * FIBRINOGEN ACTIVITY(Performed 10/02/2009) Performed for [facility] * PT PTT PANEL(Performed 10/02/2009) Performed for [facility] * CBC W AUTO DIFFERENTIAL(Performed 10/02/2009) Performed for [facility] * GLUCOSE PROTEIN KETONE URINE - POINT OF CAR(Performed 10/01/2009) * URINALYSIS REFLEX MICROSCOPIC REFLEX CULTURE(Performed 10/01/2009) Performed for [facility] * CULTURE URINE(Performed 10/01/2009) Performed for [facility] * BLOOD TYPE VERIFICATION(Performed 10/01/2009) Performed for [facility] * RPR(Performed 10/01/2009) Performed for [facility] * CULTURE STREP B(Performed 10/01/2009) Performed for [facility] * CHLAMYDIA + GC AMPLIFIED PROBE(Performed 10/01/2009) Performed for [facility] * TYPE + SCREEN PANEL(Performed 10/01/2009) Performed for [facility] * FIBRINOGEN ACTIVITY(Performed 10/01/2009) Performed for [facility] * PT PTT PANEL(Performed 10/01/2009) Performed for [facility] * KLEIHAUER BETKE STAIN(Performed 10/01/2009) Performed for [facility] * COMPREHENSIVE METABOLIC PANEL(Performed 10/01/2009) Performed for [facility] * CBC W AUTO DIFFERENTIAL(Performed 10/01/2009) Performed for [facility] Results * SONOGRAM - COMPLETE (01/10/2013 2:43 PM CDT) Anatomical Region Laterality Modality Other 01/10/2013 2:43 PM CDT Narrative 01/10/2013 4:03 PM CDT [facility] [place] PHONE: FAX: Pat. Name: FRANCHESKA YANG Pat. No: [id number] Study Date: 01/10/2013 2:43pm , Age: 08 1980, 32 Pregnancies: 7, Para 1142 LMP: Unknown GA by US: 25w1d GA Selected: 25w3d (From Known E) SAMANTA: 04/22/2013 Referring MD: SHANE REICH MD Road Roller Operator: Kaila Hollins RDMS Hist/Ind: Prior Delivery @24wk MEASUREMENTS & AGE GROWTH EVALUATION Measurement GA Range Srce %for GA Ratios ----- ---- ------- BPD 6.2 cm 25w1d (94d3v-82k1n) Hadl BPD 45% FL/BPD 0.76 (0.71 - 0.87) HC 22.9 cm 25w0d (72m0f-90e9k) Hadl HC 40% FL/AC 0.22 (0.20 - 0.24) AC 21.1 cm 25w4d (02l5a-50s7u) Hadl AC 54% HC/AC 1.09 (1.01 - 1.20) FL 4.7 cm 25w6d (68q6z-20k4l) Hadl FL 58% CI 0.76 (0.70 - 0.86) HL 4.0 cm 24w3d (62o1l-61e8b) Thom HL 33% GA for sonogram 25w1d (30q8s-16k0w) Weight Estimate: based on (HL,BPD,HC,AC,FL) Avg Weight: 829 gm (708-949) Hadlock : 1lbs, 13oz Normal: 791 gm (524-1240) Johnnie Wt% 53% for 25.4 wks Cervical Length: 4.0 cm Heart Rate: 133 bpm CLINICAL SUMMARY Study Number: 1 A bergman fetus is identified in cephalic presentation. The measurements today are consistent with appropriate growth for the SAMANTA provided.. The SAMANTA selected is based on prior ultrasound examination. The amniotic fluid volume is within normal limits. The placenta is posterior, Grade 2, with a marginal placenta previa. No major malformations are seen. The patient was advised that ultrasound does not allow detection of all structural or chromosomal abnormalities. A simple right ovarian cyst measuring 2.7 x 3.0 x 2.4cm was noted. TRANSVAGINAL ULTRASOUND: The transvaginal cervical length measures 4.0 cm with a marginal placenta previa with no funneling identified. No change is seen with fundal pressure. IMPRESSION: Single, live IUP 25w3d AGA growth Normal AFV No malformations seen within the limitations of ultrasound Reassuring cervical length and appearance Marginal placenta previa RECOMMEND: Follow up ultrasound at 32weeks to reassess placenta previa Pelvic and sexual rest Smoking cessation Thank you for allowing us the opportunity to care for your patient Pa Villa MD <Electronic Signature> 01/10/2013 04:02pm Pa Villa MD [employer] ORDERABLES * PATHOLOGY/CYTOLOGY REPORT ORDER (10/09/2009 6:24 PM [facility]) Narrative 10/09/2009 6:24 PM [facility] Ordered by an unspecified provider. Transcriptions Document, Scanned - 10/01/2009 12:00 AM [facility] Scanned Document LAB - PATHOLOGY/CYTO LOGY ORDERABLES * LAB RESULTS ORDER (10/09/2009 6:24 PM [facility]) Narrative 10/09/2009 6:24 PM [facility] Ordered by an unspecified provider. Transcriptions Document, Scanned - 10/01/2009 12:00 AM [facility] Scanned Document LAB - THERAPEUTIC DR UG MONITORING ORDERABLES * IMAGING/RADIOLOGY/XRAY RESULTS ORDER (10/09/2009 6:24 PM [facility]) Anatomical Region Laterality Modality Other Narrative 10/09/2009 6:24 PM [facility] Ordered by an unspecified provider. Transcriptions Document, Scanned - 10/01/2009 12:00 AM [facility] Scanned Document IMAGING * (ABNORMAL) CBC W AUTO DIFFERENTIAL (10/04/2009 5:02 AM [facility]) Only the most recent of3 resultswithin the time period is included. WBC 9.5(DE) 4.0 - 10.0 K/[facility] RBC 3.24(L) 3.80 - 5.80 M/[facility] Hemoglobin 9.3(L) 12.0 - 16.0 gm/dl [facility] Hematocrit 28.3(L) 37.0 - 47.0 % [facility] MCV 87.3 80.0 - 100.0 fl [facility] MCH 28.7 26.0 - 34.0 pg [facility] MCHC 32.9 31.0 - 37.0 gm/dl [facility] Platelet Count 260 150 - 400 K/[facility] RDW 13.5 11.5 - 14.5 % [facility] Granulocytes % 71.4(DH) 50 - 70 % [facility] Lymphocytes % 17.4(DL) 20 - 40 % [facility] Monocytes % 10.2(DE) 0 - 12 % [facility] Eosinophils % 0.2 0 - 5 % [facility] Basophils % 0.2 0 - 2 % [facility] Granulocytes Absolute 6.78 2.00 - 7.00 x1000/cmm [facility] Lymphocytes Absolute 1.65 0.80 - 4.00 x1000/cmm [facility] Monocytes Absolute 0.97 0.00 - 1.20 x1000/cmm [facility] Eosinophils Absolute 0.02 0.00 - 0.50 x1000/cmm [facility] Basophils Absolute 0.02 0.00 - 0.20 x1000/cmm [facility] BLOOD SPECIMEN / Unknown 10/04/2009 5:02 AM [facility] 10/04/2009 5:20 AM [facility] Cait Smith MD LAB - H EMATOLOGY ORDERABLES Performing Organization Address City/State/[facility] Co de Phone Number [facility] [address] [place] [address] * KLEIHAUER BETKE STAIN (10/03/2009 10:00 AM [facility]) Only the most recent of2 resultswithin the time period is included. /Maternal Ratio 0.0000 0.0000 [facility] Interpretation Screen [facility] Comment: . RHOGAM DOSAGE F/A ratio Volume of [facility] Vials indicated --------- 0.0000 - 0.0045 Up to 15 ml 1 vial 0.0046 - 0.0090 15 - 30 ml 2 vials 0.0091 - 0.0135 30 - 45 ml 3 vials 0.0136 - 0.0180 45 - 60 ml 4 vials 0.0181 - 0.0225 60 - 75 ml 5 vials BLOOD SPECIMEN / Unknown 10/03/2009 10:00 AM [facility] 10/03/2009 10:26 AM [facility] Isabel Rosales MD LAB - HEMATOLOGY ORDERABLES Performing Organization Address [facility] Co de Phone Number [facility] [address] [place] [phone] * (ABNORMAL) BLOOD GASES CORD ARTERIAL (10/03/2009 7:32 AM [facility]) pH Cord Arterial 7.311(H) 7.16 - 7.30 [facility] pCO2 Cord Arterial 55.9(H) 40 - 55 mm Hg [facility] pO2 Cord Arterial 17.3 12 - 20 mm Hg [facility] HCO3 Cord Arterial 27.6 mmol/L [facility] Base Excess Cord Arterial 0.1 -2.0 - 2.0 [facility] CORD BLOOD SPECIMEN / Unknown 10/03/2009 7:32 AM [facility] 10/03/2009 7:43 AM [facility] Harleen Burger MD LAB - BLOOD GA [facility] ORDERABLES Performing Organization Address [facility] de Phone Number [facility] [address] [place] [address] * (ABNORMAL) BLOOD GASES CORD VENOUS (10/03/2009 7:30 AM [facility]) pH Cord Venous 7.426(H) 7.18 - 7.33 [facility] pCO2 Cord Venous 45.1 43 - 55 mm Hg [facility] pO2 Cord Venous 29.7 22 - 33 mm Hg [facility] Base Excess Cord Venous 3.9 -2.0 - 2.0 [facility] HCO3 Cord Venous 29.0 mmol/L [facility] CORD BLOOD SPECIMEN / Unknown 10/03/2009 7:30 AM [facility] 10/03/2009 7:39 AM [facility] Harleen Burger MD LAB - BLOOD GA SES ORDERABLES Performing Organization Address [facility] Co de Phone Number [facility] [address] [place] [phone] * PT PTT PANEL (10/02/2009 10:40 PM [facility]) Only the most recent of2 resultswithin the time period is included. PT 9.7 9.4 - 11.4 seconds [facility] INR 0.92 SEE BELOW [facility] Comment: Conventional anticoagulation 2.0-3.0 Intensive anticoagulation 2.5-3.5 PTT 28.4 24.0 - 33.0 seconds [facility] BLOOD SPECIMEN / Unknown 10/02/2009 10:40 PM [facility] 10/02/2009 10:48 PM [facility] Ashwini Le MD LAB - COAGULATION OR DERABLES Performing Organization Address [facility] Co de Phone Number [facility] [address] [place] [phone] * (ABNORMAL) FIBRINOGEN ACTIVITY (10/02/2009 10:40 PM [facility]) Only the most recent of2 resultswithin the time period is included. Pathologist [facility] Fibrinogen 576(H) 150 - 450 mg/dl [facility] BLOOD SPECIMEN / Unknown 10/02/2009 10:40 PM [facility] 10/02/2009 10:47 PM [facility] Ashwini Le MD LAB - COAGULATION OR DERABLES Performing Organization Address [facility] de Phone Number [facility] [address] [place] [address] * GLUCOSE PROTEIN KETONE URINE - POINT OF CAR (10/01/2009 6:59 PM [facility]) Pathologist [facility] Glucose UA neg Negative [facility] Protein UA neg Negative [facility] Ketone UA trace Negative [facility] QC Verified Yes [facility] POC T TESTING Urine specimen (specimen) URINE / Unknown 10/01/2009 6:59 PM [facility] Fozia Parrish MD LAB - POINT OF CARE ORDERABLES Performing Organization Address [facility] de Phone Number [facility] [address] * (ABNORMAL) URINALYSIS ROUTINE W/REFLEX TO CULTURE (10/01/2009 10:45 AM [facility]) Source Clean Catch [facility] Color UA Yellow [facility] Character UA Cloudy [facility] Glucose UA NEGATIVE NEGATIVE mg/dl [facility] Bilirubin UA NEGATIVE NEGATIVE [facility] Ketone UA >=80(H) NEGATIVE mg/dl [facility] Specific [place] UA >=1.030(H) 1.003 - 1.030 [facility] Blood UA LARGE(H) NEGATIVE [facility] pH UA 6.0 5.0 - 9.0 [facility] Protein UA NEGATIVE NEGATIVE-TR NAVDEEP mg/dl [facility] Urobilinogen UA 0.2 0.2 - 1.0 Jonas Units/dl [facility] Nitrite UA NEGATIVE NEGATIVE [facility] Leukocyte UA LARGE(H) NEGATIVE [facility] WBC UA Packed Field(H) 0 - 2 HPF [facility] RBC UA [place]acked [place](H) None Seen HPF [facility] Epithelial Cell UA Greater than 10 Squamous NEGATIVE HPF [facility] Bacteria UA Few(H) NEGATIVE [facility] Urine Culture Reflexed to culture [facility] URINE SPECIMEN OBTAINED BY CLEAN CATCH PROCEDURE / Unknown 10/01/2009 10:45 AM [facility] 10/01/2009 11:06 AM [facility] Fozia Parrish MD LAB - URINALYSIS ORD ERABLES Performing Organization Address City/[facility] Co de Phone Number [facility] [address] [place] [address] * CULTURE URINE (10/01/2009 10:45 AM [facility]) Report [facility] Comment: Final - CULTURE <10,000 colonies/ml mixed aerobic tiffanie. URINE SPECIMEN OBTAINED BY CLEAN CATCH PROCEDURE / Unknown 10/01/2009 10:45 AM [facility] 10/01/2009 12:25 PM [facility] Keegan Julio MD LAB - MICROBIOLOGY O RDERABLES Performing Organization Address City/[facility]/ZIP Co de Phone Number [facility] [address] [place] [address] * BLOOD TYPE VERIFICATION (10/01/2009 10:30 AM [facility]) ABO Rh A POS SEE BELOW [facility] Comment: Weak D testing is not performed at [facility] BLOOD SPECIMEN / Unknown 10/01/2009 10:30 AM [facility] Keegan Julio MD LAB - BLOOD BANK ORD ERABLES [facility] [address] [place] [address] * RPR (10/01/2009 10:20 AM [facility]) RPR Non-Reacti ve Non Reactive [facility] BLOOD SPECIMEN / Unknown 10/01/2009 10:20 AM [facility] 10/01/2009 10:37 AM [facility] Fozia Parrish MD LAB - CHEMISTRY ORDTerry BARAJAS Performing Organization Address City/[facility]/ZIP Co de Phone Number [facility] [address] [place] [phone] * CHLAMYDIA + GC DNA PROBE AMPLIFIED (10/01/2009 10:20 AM [facility]ROUGH) Pathologist [facility] Chlamydia trachomatis Amplified Probe NEGATIVE NEGATIVE [facility] GC Amplified Probe NEGATIVE NEGATIVE [facility] Comment Amplified Probe [facility] Comment: Results based on detection/no detection of ribosomal RNA by amplified method. ENTIRE ENDOCERVIX / Unknown 10/01/2009 10:20 AM [facility] 10/01/2009 10:40 AM [facility] Fozia Parrish MD LAB - MICROBIOLOGY O KAYLA Performing Organization Address [facility]/ZIP Co de Phone Number [facility] [address] [place] [address] * CULTURE STREP B (10/01/2009 10:20 AM [facility]ROUGH) Report [facility] Comment: Final - CULTURE No Group B Beta Strep isolated MISCELLANEOUS SAMPLES / Unknown 10/01/2009 10:20 AM [facility]OUGH 10/01/2009 10:40 AM [facility] Fozia Parrish MD LAB - MICROBIOLOGY O KAYLA Performing Organization Address [facility]/ZIP Co de Phone Number [facility] [address] [place] [address] * TYPE + SCREEN PANEL (10/01/2009 10:10 AM [facility]) ABO Rh A POS SEE BELOW [facility] Comment: Weak D testing is not performed at [facility] Antibody Screen NEG [facility] Previous History Check Done No historical blood type. Blood type confirmation needed prior to transfusion. [facility] BLOOD SPECIMEN / Unknown 10/01/2009 10:10 AM [facility] 10/01/2009 10:18 AM [facility]ROUGH Fozia Parrish MD LAB - BLOOD BANK ORD ALYCIA Performing Organization Address [facility] Co de Phone Number [facility] [address] [place] [address] * (ABNORMAL) COMPREHENSIVE METABOLIC PANEL (10/01/2009 10:10 AM [facility]OUGH) Sodium 133(L) 137 - 145 mmol/L [facility] Potassium 3.4(L) 3.6 - 5.0 mmol/L [facility] Chloride 104 98 - 107 mmol/L [facility] BUN 4(L) 7 - 17 mg/dl [facility] Creatinine 0.56 0.52 - 1.04 mg/dl [facility] Glucose 185(H) 65 - 105 mg/dl [facility] Calcium 7.6(L) 8.4 - 10.2 mg/dl [facility] Alkaline Phosphatase 174(H) 38 - 126 U/L [facility] AST 23 8 - 39 U/L [facility] Bilirubin Total 0.6 0.2 - 1.3 mg/dl [facility] Protein Total 6.3 6.3 - 8.2 gm/dl [facility] Albumin 3.4(L) 3.9 - 5.0 gm/dl [facility] CO2 14(L) 22 - 30 mmol/L [facility] ALT 21 9 - 52 U/L [facility] eGFR by MDRD 129 >60 mL/min/1.7 3m2 [facility] Comment eGFR [facility] Comment: The eGFR does not apply to patients who are younger than 18 or older than 70. BLOOD SPECIMEN / Unknown 10/01/2009 10:10 AM [facility] 10/01/2009 10:18 AM [facility]ROUGH Fozia Parrish MD LAB - CHEMISTRY RIAZ BARAJAS Performing Organization Address City/[facility]/ZIP Co de Phone Number [facility] [address] [place] [address] Care Teams Printing Specialist Relationship Specialty Start Date End Date Melissa Taylor PA-C [address] [place] [phone] PCP - General 09/10/22
--- OUTSIDE RECORDS SUMMARY | 2024-10-08 22:16 | XMS_ITS | Referral Summary ---
Author Organization [facility] Address [address] [place] [address] Care Team Providers Care Burglar Alarm Installer Name Role Phone Melissa Taylor PA-C Primary Care Provider [phone] Source Comments [facility],non-owned Affiliates and Associated Physician Practices is amultiple site organization consisting of ambulatory clinics and hospital sitesin [place], [place], [place] and [place]. This disclosure is being madepursuant to the Care Everywhere program and may not contain all information available regarding this patient. Last updated 18.[facility] Allergies No known active allergies Medications * Be aware that medications may not be up to date on this document. Alwaysverify current medications with the patient. Medication Sig Dispensed Refills Start Date End Date Status gabapentin (NEURONTIN) 400 MG capsule Take 400 mg by mouth. Two tabs q four hours while awake. Active Acetaminophen-Caffeine (EXCEDRIN ASPIRIN FREE PO) Take 1 Tab by mouth. q 4 hours Active SUMAtriptan (IMITREX) 100 MG tablet Take 100 mg by mouth once as needed. Active venlafaxine XR 24hr (EFFEXOR XR) 150 MG capsule Take 150 mg by mouth daily with breakfast. Active Multiple Vitamin (MULTI-VITAMIN DAILY PO) Take 1 Tab by mouth once daily. Active Ascorbic Acid (VITAMIN C) 1000 MG TABS Take 1,000 mg by mouth once daily. Active [place]-3 Fatty Acids (FISH OIL BURP-LESS) 1000 MG CAPS Take 1 Cap by mouth three times daily before meals and at bedtime. Active psyllium (METAMUCIL) 48.57 % powder Take 1 Cap by mouth. One tablespoon daily Active meclizine (ANTIVERT) 25 MG tablet Take 25 mg by mouth 3 times daily as needed. Active diphenhydrAMINE (BENADRYL) 25 MG tablet Take by mouth every 4 hours as needed. Active Yskbmuqxyg-RYFC-Vcamhbxr 50-300-40 MG CAPS Take 1 Cap by mouth once daily as needed. Active lisinopril 10 MG TABS 20 mg, hydrochlorothiazide 25 MG TABS 12.5 mg Take by mouth once daily. Active Vit-Fe Fumarate-FA ( VITAMIN) 28-0.8 MG tablet Take 1 Tab by mouth once daily. Active Active Problems Problem Noted Date Diagnosed Date H/O delivery, currently 013 Fibromyalgia 06/09/2012 Overview (06/09/2012): 06/10/[address] New on 09/02/2011 and concluded: Fibromyalgia, anxiety, depression; Lab: Vitamin B 12 303; Vitamin D 30; SED rate 9; RA 6; CRP 0.61; CCP 25 (weakly positive); Hepatits C antibody 0.02 (Non-reactive) and recommended Savella 12.5mg BID x two days, then 25 mg BID x 3 ays, then 50 mg BID, and return visit in three months. Hypertension, essential 06/09/2012 Overview (06/09/2012): 06/10/2012 Depression 06/09/2012 Overview (06/09/2012): 06/10/2012 Hypothyroidism 06/09/2012 Overview (06/09/2012): 06/10/2012 Per patient, history of; off medication at this time. IBS (irritable bowel syndrome) 06/09/2012 Overview (06/09/2012): 06/10/2012 H/O migraine 06/09/2012 Overview (06/09/2012): 06/10/2012 Aura? H/O: section 10/01/2009 Overview (10/02/2009): LTCS documented - consented for Tobacco use disorder 10/01/2009 Bartholin's cyst 10/01/2009 Overview (10/01/2009): S/p marsupilization 09/17/2009 Syphilis Overview (10/01/2009): treated 2004 Resolved Problems Problem Noted Date Diagnosed Date Resolved Date PROM (premature rupture of membranes) 10/02/2009 10/04/2009 Overview (10/02/2009): 0300 am 10/02/09 Threatened labor 10/01/200907/2010 Social History Tobacco Use [...] 36.1 C (97 F) 10/04/2009 7:50 AM MANAGEMENT INFORMATION SYSTEMS DIRECTOR Respiratory Rate 18 01/10/2013 1:48 PM CDT Oxygen Saturation 94% 10/03/2009 2:50 PM MANAGEMENT INFORMATION SYSTEMS DIRECTOR Inhaled Oxygen Concentration 21% 10/04/2009 2 :06 AM MANAGEMENT INFORMATION SYSTEMS DIRECTOR Weight 99.8 kg (220 lb) 01/10/2013 1:48 PM CDT Height 157.5 cm (5' 2 ) 01/10/2013 1:48 PM CDT Body Mass Index 40.24 01/10/2013 1:48 PM CDT Plan of Treatment Not on file Advance Directives * Full Code (Latest Code Status on File) Date Activated Date Inactivated Comments 10/01/2009 11:10 AM 10/03/2009 10:27 AM Care Teams Burglar Alarm Installer Relationship Specialty Start Date End Date Melissa Taylor PA-C [address] [place] [address] [place] [id number] PCP - General 09/10/22
--- OUTSIDE RECORDS SUMMARY | 2024-10-08 22:16 | XMS_ITS | Clinical Summary ---
Author Organization [facility] Address [address] [place] [address] Care Team Providers Care Job Tracer Name Role Phone Melissa Taylor PA-C Primary Care Provider [phone] Source Comments [facility],non-owned Affiliates and Associated Physician Practices is amultiple site organization consisting of ambulatory clinics and hospital sitesin [place], [place], [place] and [place]. This disclosure is being madepursuant to the Care Everywhere program and may not contain all information available regarding this patient. Last updated 18.[facility] Allergies No known active allergies Medications * [...] 1,000 mg by mouth once daily. Active [place]-3 Fatty Acids (FISH OIL BURP-LESS) 1000 MG [...] mouth every 4 hours as needed. Active Cbzdggzzna-HVQA-Sbknrdos 50-300-40 MG CAPS Take 1 Cap by [...] (10/02/2009): 0300 am 10/02/09 Threatened labor 10/01/200907/2010 Family History Medical History Relation Name Comments Hypertension Brother 1 Crohn's Disease Brother 2 Diabetes Father Hypertension Father Diabetes Maternal Grandmother Arthritis Mother Hypertension Mother Multiple Sclerosis Mother Cancer Paternal Grandfather Heart Failure Paternal Grandmother DE Paternal Grandmother Relation Name Status Comments Brother 1 Alive Brother 2 Alive Father Alive Maternal Grandmother Mother Alive Paternal Grandfather Paternal Grandmother Social History Tobacco Use Types Packs/Day Years [...] 36.1 C (97 F) 10/04/2009 7:50 AM 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 Respiratory Rate 18 01/10/2013 1:48 PM CDT Oxygen Saturation 94% 10/03/2009 2:50 PM ORE BRIDGE OPERATOR Inhaled Oxygen Concentration 21% 10/04/2009 2:06 AM ORE BRIDGE OPERATOR Weight 99.8 kg (220 lb) 01/10/2013 1:48 PM CDT Height 157.5 cm (5' 2 ) 01/10/2013 1:48 PM CDT Body Mass Index 40.24 01/10/2013 1:48 PM CDT Plan of Treatment Health Maintenance Due Date Last Done Comments LIPID TESTING 1981 MAMMOGRAM 1981 PAP SMEAR 1981 HIV SCREENING 1996 HEPATITIS C SCREENING 04/12/1999 DTAP/TDAP/TD VACCINES (1 - Tdap) 2000 HEPATITIS B VACCINE (1 of 3 - 19+ 3-dose series) 2000 PNEUMOCOCCAL VACCINE (1 of 2 - PCV) 2000 COVID-19 VACCINE (1 - 2023-2 5 season) 2024 INFLUENZA VACCINE (#1) 2024 DEPRESSION SCREENING 08/23/2024 ZOSTER VACCINE (1 of 2) 2031 HIB VACCINE Aged Out No longer eligi ble based on patient's age to complete this topic HPV VACCINE Aged Out No longer eligi ble based on patient's age to complete this topic MENINGOCOCCAL (Group B) VACCINE Aged Out No longer eligible based on patient's age to complete this topic MENINGOCOCCAL VACCINE Aged Out No lorne dominique eligible based on patient's age to complete this topic Advance Directives * Full Code (Latest Code Status on File) Date Activated Date Inactivated Comments 10/01/2009 11:10 AM 10/03/2009 10:27 AM Care Teams Job Tracer Relationship Specialty Start Date End Date Melissa Taylor PA-C [address] [place] [address] [place] [id number] PCP - General 09/10/22
[2024-10-08 22:23] VITALS: BP 133/67; PULSE 98; RESP 20; TEMP 36.3; O2SAT 99
[2024-10-09 01:55] VITALS: O2SAT 97
[2024-10-09 01:56] VITALS: BP 114/74; PULSE 84; RESP 16; TEMP 36.6; O2SAT 98
--- NOTE | 2024-10-09 02:15 | ED_ITS ---
HPI - General Adult General Chief complaint: Upper Respiratory Infection Stated complaint: think I have cracked ribs and bulge coming out Time Seen by Provider: 10/09/24 01:57 History of Present Illness HPI narrative: This is a 44-year-old female presenting ED with chief complaint of right-sided rib pain. She was diagnosed with flu 2 weeks ago. Since then she has had a persistent cough. She has now developed pain in her right ribs. It is worse with palpation and movement. Her flu infection has improved and she no longer has fevers, or any viral symptoms. She still has a mild lingering cough. Related Data Home Medications ?Medication ?Instructions ?Recorded ?Confirmed ?Last Taken ?Type No Home Medications 09/21/24 10/09/24 Unknown History Allergies Allergy/AdvReac Type Severity Reaction Status Date / Time prednisone AdvReac Unknown Nausea and Verified 10/09/24 01:53 Vomiting PMFSH Past Medical History Medical History Infected sebaceous cyst Infected sebaceous cyst No pertinent past medical history Surgical History Surgical History Hx of excision of mass Excision of 3 cm back cyst 11/01/23 History of tonsillectomy History of History of tubal ligation Family History Family History Other Cerebrovascular accident Diabetes mellitus Hypertension Kidney disease Social History Social History Smoking packs per day: 1 Smoking cigarettes per day: 20.0 Years smoked: 15 Smoking pack-years: 15.00 Smoking status: Current every day smoker Tobacco type: cigarettes Alcohol intake: current Alcohol use details: 3 PER YEAR Substance use: never Living arrangements: with family Gender identity (if verbalized by the patient): Female Sexual Orientation (if Verbalized by the Patient): Straight or Heterosexual Spiritual care concerns: No Exam Narrative: APPEARANCE: No apparent distress. Head: atraumatic. EYES: EOMI, NOSE: Atraumatic NECK: Trachea midline RESPIRATORY: Clear to auscultation, speaking in full sentences CARDIOVASCULAR: RRR, ABDOMINAL: Soft nontender, MUSCULOSKELETAl: Tenderness to palpation over the right ribcage, no appreciable bulge or mass with the patient indicates NEURO: Alert. Moving 4/4 extremities SKIN:: Warm, dry. Normal color PSYCHIATRIC: Normal affect Course Vital Signs Vital signs: Vital Signs Temperature 97.3 F L 10/08/24 22:23 Pulse Rate 98 10/08/24 22:23 Respiratory Rate 20 10/08/24 22:23 Blood Pressure 133/67 10/08/24 22:23 Pulse Oximetry 99 10/08/24 22:23 Temperature 97.8 F 10/09/24 01:56 Pulse Rate 84 10/09/24 01:56 Respiratory Rate 16 10/09/24 01:56 Blood Pressure 114/74 10/09/24 01:56 Pulse Oximetry 98 10/09/24 01:56 Oxygen Delivery Room Air 10/09/24 01:55 Medical Decision Making MDM Narrative Medical decision making narrative: -Course: 44-year-old female presenting with right-sided rib pain. X-ray without obvious displaced fractures, pneumothorax or pneumonia. Vital signs are stable and she is not in respiratory distress but. Patient will be treated with pain control incentive spirometry. Discharged with return precautions. Vital Signs Vital Signs: Vital Signs Temperature 97.3 F L 10/08/24 22:23 Pulse Rate 98 10/08/24 22:23 Respiratory Rate 20 10/08/24 22:23 Blood Pressure 133/67 10/08/24 22:23 Pulse Oximetry 99 10/08/24 22:23 Temperature 97.8 F 10/09/24 01:56 Pulse Rate 84 10/09/24 01:56 Respiratory Rate 16 10/09/24 01:56 Blood Pressure 114/74 10/09/24 01:56 Pulse Oximetry 98 10/09/24 01:56 Oxygen Delivery Room Air 10/09/24 01:55 Discharge Plan Discharge Clinical Impression: Rib pain Patient Disposition: Home, Self-Care Condition: Stable Instructions: Antibiotic Form, Rib Fracture (ED) Additional Instructions: Please use Motrin, Tylenol, lidocaine patches for pain control. Please use your incentive spirometer 10 times per hour while awake. Please return to ED if you develop worsening chest pain shortness of breath or fevers. Otherwise please follow-up your primary care physician for further management. Patient Language: Japanese Prescriptions: New ibuprofen 800 mg tablet 800 mg PO TID PRN (Reason: pain) 7 Days Qty: 21 0RF acetaminophen 500 mg tablet 1,000 mg PO TID PRN (Reason: cuong) 7 Days Qty: 42 0RF lidocaine 5 % adhesive patch,medicated 1 patch topical DAILY Qty: 15 0RF Rx Instructions: leave on most painful area for up to 12 hrs No Action No Home Medications Follow-up/Referrals: UNKNOWN,DOCTOR [Primary Care Provider] -
[2024-10-09] MEDS: LIDOCAINE 5% PATCH 1 PATCH TRANSDERM (02:26)
[2024-10-09] MEDS: ACETAMINOPHEN 500 MG TABLET 1000 MG PO (02:26)
[2024-10-09] MEDS: KETOROLAC 30 MG/ML VIAL (*BKC) IM (02:26)
--- OUTSIDE RECORDS SUMMARY | 2024-10-09 02:36 | XMS_ITS | Referral Summary ---
Author Organization [facility] Address [address] [place] [address] Care Team Providers Care Enhanced Environmental Operator Name Role Phone Melissa Taylor PA-C Primary Care Provider [phone] Source Comments [facility],non-owned Affiliates and Associated Physician Practices is amultiple site organization consisting of ambulatory clinics and hospital sitesin [place] and [place]. This disclosure is being madepursuant to the Care Everywhere program and may not contain all information available regarding this patient. Last updated 18.[facility] Allergies No known active allergies Medications * [...] 1,000 mg by mouth once daily. Active [place]-3 Fatty Acids (FISH OIL BURP-LESS) 1000 MG [...] mouth every 4 hours as needed. 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 Respiratory Rate 18 01/10/2013 1:48 PM CDT Oxygen Saturation 94% 10/03/2009 2:50 PM CTE TEACHER Inhaled Oxygen Concentration 21% 10/04/2009 2 :06 AM CTE TEACHER Weight 99.8 kg (220 lb) 01/10/2013 1:48 PM CDT Height 157.5 cm (5' 2 ) 01/10/2013 1:48 PM CDT Body Mass Index 40.24 01/10/2013 1:48 PM CDT Plan of Treatment Not on file Advance Directives * Full Code (Latest Code Status on File) Date Activated Date Inactivated Comments 10/01/2009 11:10 AM 10/03/2009 10:27 AM Care Teams Enhanced Environmental Operator Relationship Specialty Start Date End Date Melissa Taylor PA-C [address] [place] [address] [place] [id number] PCP - General 09/10/22
--- OUTSIDE RECORDS SUMMARY | 2024-10-09 02:36 | XMS_ITS | Clinical Summary ---
Author Organization [facility] Address [address] [place] [address] Care Team Providers Care Chauffeur [place] Limousine Name Role Phone Unavailable Primary Care Provider [...]
--- OUTSIDE RECORDS SUMMARY | 2024-10-09 02:36 | XMS_ITS | Patient Health Summary ---
Author Organization [facility] Address [address] [place] [address] Care Team Providers Care Call Center Support Consultant Name Role Phone Melissa Taylor PA-C Primary Care Provider Note from [facility],non-owned Affiliates and Associated Physician Practices is amultiple site organization consisting of ambulatory clinics and hospital sitesin [place], [place], [place] and [place]. This disclosure is being madepursuant to the Care Everywhere program and may not contain all information available regarding this patient. Last updated 18.[facility] Allergies No known active allergies Medications * [...] 1,000 mg by mouth once daily. * [place]-3 Fatty Acids (FISH OIL BURP-LESS) 1000 MG [...] mouth every 4 hours as needed. * Xutzvhykzf-BXAW-Ssldofyl 50-300-40 MG CAPS Take 1 Cap by [...] 36.1 C (97 F) 10/04/2009 7:50 AM LICENSED PESTICIDE APPLICATOR Respiratory Rate 18 01/10/2013 1:48 PM CDT Oxygen Saturation 94% 10/03/2009 2:50 PM LICENSED PESTICIDE APPLICATOR Inhaled Oxygen Concentration 21% 10/04/2009 2 :06 AM LICENSED PESTICIDE APPLICATOR Weight 99.8 kg (220 lb) 01/10/2013 1:48 [...] PM CDT Narrative 01/10/2013 4:03 PM CDT [facility] Maternal Medicine Maternal & Care Edgar PHONE: FAX: Pat. Name: FRANCHESKA YANG Pat. No: [id number] Study Date: 01/10/2013 2:43pm , Age: 08 1980, 32 Pregnancies: 7, Para 1142 LMP: Unknown GA by US: 25w1d GA Selected: 25w3d (From Known E) SAMANTA: 04/22/2013 Referring MD: SHANE REICH MD Armature Winder Helper Repair: Kaila Hollins RDMS Hist/Ind: Prior Delivery @24wk MEASUREMENTS & AGE GROWTH EVALUATION Measurement GA Range Srce %for GA Ratios ----- ---- ------- BPD 6.2 cm 25w1d (25z2b-69d2g) Hadl BPD 45% FL/BPD 0.76 (0.71 - 0.87) HC 22.9 cm 25w0d (95e6s-91l7d) Hadl HC 40% FL/AC 0.22 (0.20 - 0.24) AC 21.1 cm 25w4d (63k8e-49m1q) Hadl AC 54% HC/AC 1.09 (1.01 - 1.20) FL 4.7 cm 25w6d (95e1c-49t7x) Hadl FL 58% CI 0.76 (0.70 - 0.86) HL 4.0 cm 24w3d (75p3g-72t0u) Thom HL 33% GA for sonogram 25w1d (36r3k-77z4g) Weight Estimate: based on (HL,BPD,HC,AC,FL) Avg Weight: [...] <Electronic Signature> 01/10/2013 04:02pm Pa Villa MD [facility] ORDERABLES * PATHOLOGY/CYTOLOGY REPORT ORDER (10/09/2009 6:24 PM LICENSED PESTICIDE APPLICATOR) Narrative 10/09/2009 6:24 PM LICENSED PESTICIDE APPLICATOR Ordered by an unspecified provider. Transcriptions Document, Scanned - 10/01/2009 12:00 AM LICENSED PESTICIDE APPLICATOR Scanned Document LAB - PATHOLOGY/CYTO LOGY ORDERABLES * LAB RESULTS ORDER (10/09/2009 6:24 PM LICENSED PESTICIDE APPLICATOR) Narrative 10/09/2009 6:24 PM LICENSED PESTICIDE APPLICATOR Ordered by an unspecified provider. Transcriptions Document, Scanned - 10/01/2009 12:00 AM LICENSED PESTICIDE APPLICATOR Scanned Document LAB - THERAPEUTIC DR UG MONITORING ORDERABLES * IMAGING/RADIOLOGY/XRAY RESULTS ORDER (10/09/2009 6:24 PM LICENSED PESTICIDE APPLICATOR) Anatomical Region Laterality Modality Other Narrative 10/09/2009 6:24 PM LICENSED PESTICIDE APPLICATOR Ordered by an unspecified provider. Transcriptions Document, Scanned - 10/01/2009 12:00 AM LICENSED PESTICIDE APPLICATOR Scanned Document IMAGING * (ABNORMAL) CBC W AUTO DIFFERENTIAL (10/04/2009 5:02 AM LICENSED PESTICIDE APPLICATOR) Only the most recent of3 resultswithin the time period is included. WBC 9.5(DE) 4.0 - 10.0 K/[facility] RBC 3.24(L) 3.80 - 5.80 M/[facility] Hemoglobin 9.3(L) 12.0 - 16.0 gm/dl [facility] Hematocrit 28.3(L) 37.0 - 47.0 % [facility] MCV 87.3 80.0 - 100.0 fl [facility] MCH 28.7 26.0 - 34.0 pg [facility] MCHC 32.9 31.0 - 37.0 gm/dl [facility] Platelet Count 260 150 - 400 K/[facility] RDW 13.5 11.5 - 14.5 % [facility] Granulocytes % 71.4(DH) 50 - 70 % [facility] Lymphocytes % 17.4(DL) 20 - 40 % [facility] Monocytes % 10.2(DE) 0 - 12 % [facility] Eosinophils % 0.2 0 - 5 % [facility] Basophils % 0.2 0 - 2 % [facility] Granulocytes Absolute 6.78 2.00 - 7.00 x1000/cmm [facility] Lymphocytes Absolute 1.65 0.80 - 4.00 x1000/cmm [facility] Monocytes Absolute 0.97 0.00 - 1.20 x1000/cmm [facility] Eosinophils Absolute 0.02 0.00 - 0.50 x1000/cmm [facility] Basophils Absolute 0.02 0.00 - 0.20 x1000/cmm [facility] BLOOD SPECIMEN / Unknown 10/04/2009 5:02 AM LICENSED PESTICIDE APPLICATOR 10/04/2009 5:20 AM LICENSED PESTICIDE APPLICATOR Cait Smith MD LAB - H EMATOLOGY ORDERABLES Performing Organization Address City/State/[facility] Co de Phone Number [facility] [address] [place] [address] * KLEIHAUER BETKE STAIN (10/03/2009 10:00 AM LICENSED PESTICIDE APPLICATOR) Only the most recent of2 resultswithin the time period is included. /Maternal Ratio 0.0000 0.0000 [facility] Interpretation Screen [facility] Comment: . RHOGAM DOSAGE F/A ratio Volume of [facility] Vials indicated --------- 0.0000 - 0.0045 Up to 15 ml 1 vial 0.0046 - 0.0090 15 - 30 ml 2 vials 0.0091 - 0.0135 30 - 45 ml 3 vials 0.0136 - 0.0180 45 - 60 ml 4 vials 0.0181 - 0.0225 60 - 75 ml 5 vials BLOOD SPECIMEN / Unknown 10/03/2009 10:00 AM LICENSED PESTICIDE APPLICATOR 10/03/2009 10:26 AM LICENSED PESTICIDE APPLICATOR Isabel Rosales MD LAB - HEMATOLOGY ORDERABLES Performing Organization Address [facility] Co de Phone Number [facility] [address] [place] [phone] * (ABNORMAL) BLOOD GASES CORD ARTERIAL (10/03/2009 7:32 AM LICENSED PESTICIDE APPLICATOR) pH Cord Arterial 7.311(H) 7.16 - 7.30 [facility] pCO2 Cord Arterial 55.9(H) 40 - 55 mm Hg [facility] pO2 Cord Arterial 17.3 12 - 20 mm Hg [facility] HCO3 Cord Arterial 27.6 mmol/L [facility] Base Excess Cord Arterial 0.1 -2.0 - 2.0 [facility] CORD BLOOD SPECIMEN / Unknown 10/03/2009 7:32 AM LICENSED PESTICIDE APPLICATOR 10/03/2009 7:43 AM LICENSED PESTICIDE APPLICATOR Harleen Burger MD LAB - BLOOD [place] [facility] ORDERABLES Performing Organization Address [facility] de Phone Number [facility] [address] [place] [address] * (ABNORMAL) BLOOD GASES CORD VENOUS (10/03/2009 7:30 AM LICENSED PESTICIDE APPLICATOR) pH Cord Venous 7.426(H) 7.18 - 7.33 [facility] pCO2 Cord Venous 45.1 43 - 55 mm Hg [facility] pO2 Cord Venous 29.7 22 - 33 mm Hg [facility] Base Excess Cord Venous 3.9 -2.0 - 2.0 [facility] HCO3 Cord Venous 29.0 mmol/L [facility] CORD BLOOD SPECIMEN / Unknown 10/03/2009 7:30 AM LICENSED PESTICIDE APPLICATOR 10/03/2009 7:39 AM LICENSED PESTICIDE APPLICATOR Harleen Burger MD LAB - BLOOD GA SES ORDERABLES Performing Organization Address [facility] Co de Phone Number [facility] [address] [place] [phone] * PT PTT PANEL (10/02/2009 10:40 PM LICENSED PESTICIDE APPLICATOR) Only the most recent of2 resultswithin the time period is included. PT 9.7 9.4 - 11.4 seconds [facility] INR 0.92 SEE BELOW [facility] Comment: Conventional anticoagulation 2.0-3.0 Intensive anticoagulation 2.5-3.5 PTT 28.4 24.0 - 33.0 seconds [facility] BLOOD SPECIMEN / Unknown 10/02/2009 10:40 PM LICENSED PESTICIDE APPLICATOR 10/02/2009 10:48 PM LICENSED PESTICIDE APPLICATOR Ashwini Le MD LAB - COAGULATION OR DERABLES Performing Organization Address [facility] Co de Phone Number [facility] [address] [place] [address] * (ABNORMAL) FIBRINOGEN ACTIVITY (10/02/2009 10:40 PM LICENSED PESTICIDE APPLICATOR) Only the most recent of2 resultswithin the time period is included. Pathologist [facility] Fibrinogen 576(H) 150 - 450 mg/dl [facility] BLOOD SPECIMEN / Unknown 10/02/2009 10:40 PM LICENSED PESTICIDE APPLICATOR 10/02/2009 10:47 PM LICENSED PESTICIDE APPLICATOR Ashwini Le MD LAB - COAGULATION OR DERABLES Performing Organization Address [facility] de Phone Number [facility] [address] [place] [address] * GLUCOSE PROTEIN KETONE URINE - POINT OF CAR (10/01/2009 6:59 PM LICENSED PESTICIDE APPLICATOR) Pathologist [facility] Glucose UA neg Negative [facility] Protein UA neg Negative [facility] Ketone UA trace Negative [facility] QC Verified Yes [facility] POC T TEST[facility] Urine specimen (specimen) URINE / Unknown 10/01/2009 6:59 PM LICENSED PESTICIDE APPLICATOR Fozia Parrish MD LAB - POINT OF CARE ORDERABLES Performing Organization Address [facility] de Phone Number [place] [address] * (ABNORMAL) URINALYSIS ROUTINE W/REFLEX TO CULTURE (10/01/2009 10:45 AM LICENSED PESTICIDE APPLICATOR) Source Clean Catch [facility] Color UA Yellow [facility] Character UA Cloudy [facility] Glucose UA NEGATIVE NEGATIVE mg/dl [facility] Bilirubin UA NEGATIVE NEGATIVE [facility] Ketone UA >=80(H) NEGATIVE mg/dl [facility] Specific [place] UA >=1.030(H) 1.003 - 1.030 [facility] Blood UA LARGE(H) NEGATIVE [facility] pH UA 6.0 5.0 - 9.0 [facility] Protein UA NEGATIVE NEGATIVE-TR NAVDEEP mg/dl [facility] Urobilinogen UA 0.2 0.2 - 1.0 Jonas Units/dl [facility] Nitrite UA NEGATIVE NEGATIVE [facility] Leukocyte UA LARGE(H) NEGATIVE [facility] WBC UA Packed [place](H) 0 - 2 HPF [facility] RBC UA [place](H) None Seen HPF [facility] Epithelial Cell UA Greater than 10 Squamous NEGATIVE HPF [facility] Bacteria UA Few(H) NEGATIVE [facility] Urine Culture Reflexed to culture [facility] URINE SPECIMEN OBTAINED BY CLEAN CATCH PROCEDURE / Unknown 10/01/2009 10:45 AM LICENSED PESTICIDE APPLICATOR 10/01/2009 11:06 AM LICENSED PESTICIDE APPLICATOR Fozia Parrish MD LAB - URINALYSIS ORD ERABLES Performing Organization Address City/[facility] Co de Phone Number [facility] [address] [place] [address] * CULTURE URINE (10/01/2009 10:45 AM LICENSED PESTICIDE APPLICATOR) Report [facility] Comment: Final - CULTURE <10,000 colonies/ml mixed aerobic tiffanie. URINE SPECIMEN OBTAINED BY CLEAN CATCH PROCEDURE / Unknown 10/01/2009 10:45 AM LICENSED PESTICIDE APPLICATOR 10/01/2009 12:25 PM LICENSED PESTICIDE APPLICATOR Keegan Julio MD LAB - MICROBIOLOGY O RDERABLES Performing Organization Address City/[facility]/ZIP Co de Phone Number [facility] [address] [place] [address] * BLOOD TYPE VERIFICATION (10/01/2009 10:30 AM LICENSED PESTICIDE APPLICATOR) ABO Rh A POS SEE BELOW [facility] Comment: Weak D testing is not performed at [facility] BLOOD SPECIMEN / Unknown 10/01/2009 10:30 AM LICENSED PESTICIDE APPLICATOR Keegan Julio MD LAB - BLOOD BANK ORD ERABLES [facility] [address] [place] [address] * RPR (10/01/2009 10:20 AM LICENSED PESTICIDE APPLICATOR) RPR Non-Reacti ve Non Reactive [facility] BLOOD SPECIMEN / Unknown 10/01/2009 10:20 AM LICENSED PESTICIDE APPLICATOR 10/01/2009 10:37 AM LICENSED PESTICIDE APPLICATOR Fozia Parrish MD LAB - CHEMISTRY ORDTerry BARAJAS Performing Organization Address City/[facility]/ZIP Co de Phone Number [facility] [address] [place] [address] * CHLAMYDIA + GC DNA PROBE AMPLIFIED (10/01/2009 10:20 AM LICENSED PESTICIDE APPLICATOR) Pathologist [facility] Chlamydia trachomatis Amplified Probe NEGATIVE NEGATIVE [facility] GC Amplified Probe NEGATIVE NEGATIVE [facility] Comment Amplified Probe [facility] Comment: Results based on detection/no detection of ribosomal RNA by amplified method. ENTIRE ENDOCERVIX / Unknown 10/01/2009 10:20 AM LICENSED PESTICIDE APPLICATOR 10/01/2009 10:40 AM LICENSED PESTICIDE APPLICATOR Fozia Parrish MD LAB - MICROBIOLOGY O KAYLA Performing Organization Address [facility]/ZIP Co de Phone Number [facility] [address] [place] [address] * CULTURE STREP B (10/01/2009 10:20 AM LICENSED PESTICIDE APPLICATOR) Report [facility] Comment: Final - CULTURE No Group B Beta Strep isolated MISCELLANEOUS SAMPLES / Unknown 10/01/2009 10:20 AM LICENSED PESTICIDE APPLICATOR 10/01/2009 10:40 AM LICENSED PESTICIDE APPLICATOR Fozia Parrish MD LAB - MICROBIOLOGY O KAYLA Performing Organization Address [facility]/ZIP Co de Phone Number [facility] [address] [place] [address] * TYPE + SCREEN PANEL (10/01/2009 10:10 AM LICENSED PESTICIDE APPLICATOR) ABO Rh A POS SEE BELOW [facility] Comment: Weak D testing is not performed at [facility] Antibody Screen NEG [facility] Previous History Check Done No historical blood type. Blood type confirmation needed prior to transfusion. [facility] BLOOD SPECIMEN / Unknown 10/01/2009 10:10 AM LICENSED PESTICIDE APPLICATOR 10/01/2009 10:18 AM LICENSED PESTICIDE APPLICATOR Fozia Parrish MD LAB - BLOOD BANK ORD ALYCIA Performing Organization Address [facility] Co de Phone Number [facility] [address] [place] [address] * (ABNORMAL) COMPREHENSIVE METABOLIC PANEL (10/01/2009 10:10 AM LICENSED PESTICIDE APPLICATOR) Sodium 133(L) 137 - 145 mmol/L [facility] Potassium 3.4(L) 3.6 - 5.0 mmol/L [facility] Chloride 104 98 - 107 mmol/L [facility] BUN 4(L) 7 - 17 mg/dl [facility] Creatinine 0.56 0.52 - 1.04 mg/dl [facility] Glucose 185(H) 65 - 105 mg/dl [facility] Calcium 7.6(L) 8.4 - 10.2 mg/dl [facility] Alkaline Phosphatase 174(H) 38 - 126 U/L [facility] AST 23 8 - 39 U/L [facility] Bilirubin Total 0.6 0.2 - 1.3 mg/dl [facility] Protein Total 6.3 6.3 - 8.2 gm/dl [facility] Albumin 3.4(L) 3.9 - 5.0 gm/dl [facility] CO2 14(L) 22 - 30 mmol/L [facility] ALT 21 9 - 52 U/L [facility] eGFR by MDRD 129 >60 mL/min/1.7 3m2 [facility] Comment eGFR [facility] Comment: The eGFR does not apply to patients who are younger than 18 or older than 70. BLOOD SPECIMEN / Unknown 10/01/2009 10:10 AM LICENSED PESTICIDE APPLICATOR 10/01/2009 10:18 AM LICENSED PESTICIDE APPLICATOR Fozia Parrish MD LAB - CHEMISTRY RIAZ BARAJAS Performing Organization Address City/[facility]/ZIP Co de Phone Number [facility] [address] [place] [address] Care Teams Call Center Support Consultant Relationship Specialty Start Date End Date Melissa Taylor PA-C [address] [place] [address] PCP - General 09/10/22
--- OUTSIDE RECORDS SUMMARY | 2024-10-09 02:36 | XMS_ITS | Clinical Summary ---
Author Organization [facility] Address [address] [place] [address] Care Team Providers Care Sql Analyst Name Role Phone Melissa Taylor PA-C Primary Care Provider [phone] Source Comments [facility],non-owned Affiliates and Associated Physician Practices is amultiple site organization consisting of ambulatory clinics and hospital sitesin [place], [place], [place] and [place]. This disclosure is being madepursuant to the Care Everywhere program and may not contain all information available regarding this patient. Last updated 18.[facility] Allergies No known active allergies Medications * [...] 1,000 mg by mouth once daily. Active [place]-3 Fatty Acids (FISH OIL BURP-LESS) 1000 MG [...] mouth every 4 hours as needed. 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
== END 2024-10-09 02:34 | disposition home or self-care (01) ==
LOC: ANHED 10-09 02:33
PROVIDERS: Emergency Provider Emergency Medicine
DX: R07.81 Pleurodynia (principal); F17.210 Nicotine dependence, cigarettes, uncomplicated
CPT/HCPCS: 71101; 96372; 99283; A9270; J1885

== ENCOUNTER 2024-10-10 17:19 | Emergency (ER) | payer OTHER, SELFPAY ==
[2024-10-10 17:25] VITALS: BP 129/88; PULSE 102; RESP 16; TEMP 36.5; O2SAT 100
--- NOTE | 2024-10-10 17:34 | ED.URI ---
HPI - URI/Sore Throat General Stated Complaint: Sinus Time Seen by Provider: 10/10/24 17:34 Source: patient, RN notes reviewed and old records reviewed Mode of arrival: ambulatory Limitations: no limitations History of Present Illness HPI Narrative: Patient seen in emergency department for rib pain yesterday presents with request for work note today. States she did not get a work note while in the emergency department yesterday, and does not feel well enough to go to work. She denies any new injury or trauma. She denies any new complaints. She reports that she has been using the medications prescribed yesterday with moderate results Related Data Home Medications ?Medication ?Instructions ?Recorded ?Confirmed ?Last Taken ?Type No Home Medications 09/21/24 10/10/24 Unknown History Allergies Allergy/AdvReac Type Severity Reaction Status Date / Time prednisone AdvReac Unknown Nausea and Verified 10/10/24 17:40 Vomiting Review of Systems Review of Systems: All systems reviewed & are unremarkable except as noted in HPI and below Constitutional: Constitutional: Reports no additional constitutional complaints ENT: Reports system reviewed and no additional complaints, except as documented Cardiovascular: Cardiovascular: Reports no additional cardiovascular complaints Respiratory: Respiratory: Reports no additional respiratory complaints Gastrointestinal: Gastrointestinal: Reports no additional gastrointestinal complaints Musculoskeletal: Musculoskeletal: Reports no additional musculoskeletal complaints and Reports as per HPI PMF Past Medical History Medical History Infected sebaceous cyst Infected sebaceous cyst No pertinent past medical history Surgical History Surgical History Hx of excision of mass Excision of 3 cm back cyst 11/01/23 History of tonsillectomy History of History of tubal ligation Family History Family History Other Cerebrovascular accident Diabetes mellitus Hypertension Kidney disease Social History Social History Smoking packs per day: 1 Smoking cigarettes per day: 20.0 Years smoked: 15 Smoking pack-years: 15.00 Smoking status: Current every day smoker Tobacco type: cigarettes Alcohol intake: current Alcohol use details: 3 PER YEAR Substance use: never Living arrangements: with family Gender identity (if verbalized by the patient): Female Sexual Orientation (if Verbalized by the Patient): Straight or Heterosexual Spiritual care concerns: No Comments At the time of my signature, I reviewed and agree with the nursing past medical, surgical, social, and family history. There is no relevant family history pertinent to the patient complaint. Exam Const: General: cooperative, no acute distress, alert and awake Orientation/consciousness: oriented to person, oriented to place and oriented to time HENMT: Head: normal to inspection Resp: Effort & Inspection: normal respiratory effort and able to speak in complete sentences Auscultation: clear to auscultation bilaterally, no crackles, no rales, no rhonchi and no wheezes Cardio: Palpation: normal PMI Rate: regular rate Rhythm: regular rhythm Heart sounds: S1 normal heart sound present and S2 normal heart sound present Neuro: General: oriented to person, oriented to place and oriented to time Cranial nerves: Yes CN's II-XII intact bilaterally Extrem: Shoulder/upper arm images:  1. tenderness Psych: Appearance: grossly normal Thought process: Normal thought process present Insight: Good insight present (Psych) Judgement: Good judgement present (Psych) Course Course Level of Care: Express Care Visit Vital Signs Vital signs: Vital Signs Temperature 97.7 F 10/10/24 17:25 Pulse Rate 102 H 10/10/24 17:25 Respiratory Rate 16 10/10/24 17:25 Blood Pressure 129/88 10/10/24 17:25 Pulse Oximetry 100 10/10/24 17:25 Oxygen Delivery Room Air 10/10/24 17:25 Temperature 97.7 F 10/10/24 17:25 Pulse Rate 102 H 10/10/24 17:25 Respiratory Rate 16 10/10/24 17:25 Blood Pressure 129/88 10/10/24 17:25 Pulse Oximetry 100 10/10/24 17:25 Oxygen Delivery Room Air 10/10/24 17:25 Reviewed MDM - URI/Sore Throat MDM Narrative Medical decision making narrative: Patient with no new complaints since emergency department visit yesterday, requesting work note. Work note provided. Discharge instructions reviewed with patient, as well as provided in writing per nursing staff. The instructions also include specific and strict return/GO TO THE ER as well as f/u information. All questions have been answered, and the patient deny any further questions with discharge and discharge plan. Some parts of this dictation were generated by voice recognition software and may contain typographical and/or grammatical inaccuracies. Differential Diagnosis Differential diagnosis: Likely upper respiratory infection Medical Records Attestation: I reviewed the patient's medical records. Discharge Plan Discharge Clinical Impression: Rib pain on right side Patient Disposition: Home, Self-Care Condition: Stable Instructions: Antibiotic Form, Musculoskeletal Pain (ED) Additional Instructions: Continue with medications that your prescribed in the emergency department yesterday. Follow up primary care provider. Emergency department for new or worse symptoms Patient Language: Thai Prescriptions: No Action No Home Medications ibuprofen 800 mg tablet 800 mg PO TID PRN (Reason: pain) 7 Days Qty: 21 0RF acetaminophen 500 mg tablet 1,000 mg PO TID PRN (Reason: cuong) 7 Days Qty: 42 0RF lidocaine 5 % adhesive patch,medicated 1 patch topical DAILY Qty: 15 0RF Rx Instructions: leave on most painful area for up to 12 hrs Follow-up/Referrals: PHYSICIAN,SENIOR DESIGN ENGINEERING SPECIALIST [Primary Care Provider] - 1 Week Stand Alone Forms: Work/School Release IP Time of Disposition: 18:34
== END 2024-10-10 18:40 | disposition home or self-care (01) ==
PROVIDERS: Emergency Provider Nurse Practitioner Family
DX: R07.81 Pleurodynia (principal); F17.210 Nicotine dependence, cigarettes, uncomplicated
CPT/HCPCS: 99212; G0463

== ENCOUNTER 2025-08-18 10:46 | Emergency (ER) | payer OTHER, SELFPAY ==
--- NOTE | 2025-08-18 10:52 | ED_ITS ---
HPI - URI/Sore Throat General Chief Complaint: Upper Respiratory Infection Stated Complaint: flu symptoms Time Seen by Provider: 08/18/25 10:52 Source: patient Mode of arrival: ambulatory Limitations: no limitations History of Present Illness HPI Narrative: Francheska is a 45-year-old female patient presenting to the clinic today with complaints of flu-like symptoms x2 days. She reports a lot of people at work been sick with the symptoms. States she is having headache, nasal congestion, chills, body aches, and feeling fatigued. Has taken xlzx-yox-nthhihr cold medications without relief. Related Data Home Medications ?Medication ?Instructions ?Recorded ?Confirmed ?Last Taken ?Type No Home Medications 09/21/24 08/18/25 U nknown History Allergies Allergy/AdvReac Type Severity Reaction Status Date / Time prednisone AdvReac Unknown Nausea and Verified 08/18/25 10:47 Vomiting Review of Systems Review of Systems: Pertinent positives per HPI. Patient denies any fever, rash, visual changes, dizziness, shortness of breath, chest pain, palpitations, nausea, vomiting, diarrhea, constipation, abdominal pain, or any urinary issues. [facility] Past Medical History Medical History Infected sebaceous cyst Infected sebaceous cyst No pertinent past medical history Surgical History Surgical History Hx of excision of mass Excision of 3 cm back cyst 11/01/23 History of tonsillectomy History of History of tubal ligation Family History Family History Other Cerebrovascular accident Diabetes mellitus Hypertension Kidney disease Social History Social History Smoking packs per day: 1 Smoking cigarettes per day: 20.0 Years smoked: 15 Smoking pack-years: 15.00 Smoking status: Current every day smoker Tobacco type: cigarettes Alcohol intake: current Alcohol use details: 3 PER YEAR Substance use: never Living arrangements: with family Gender identity (if verbalized by the patient): Female Sexual Orientation (if Verbalized by the Patient): Straight or Heterosexual Spiritual care concerns: No Comments At the time of my signature, I reviewed and agree with the nursing past medical, surgical, social, and family history. There is no relevant family history pertinent to the patient complaint. Exam Narrative: General: Well-developed, morbidly obese, in no apparent distress Head: Normocephalic, atraumatic Eyes: Pupils equally round and reactive to light bilaterally, EOM intact, sclera and conjunctive clear, no discharge, lids normal Ears: TMs intact and clear, ear canals clear, no drainage, grossly hearing normal. Nose: Nares patent, clear nasal discharge, no inflammation, no sinus tenderness. Mouth: Oral pharynx red without lesions or masses, good dentition, MMM. Postnasal drip Neck: Supple, trachea midline, no enlargement of anterior or posterior cervical nodes, no thyroid masses or goiter palpable. Cardio: Regular rate and rhythm, s1 and s2 normal, no murmur appreciated. Resp: Clear to auscultation bilaterally, no rhonchi, rales, wheezing or rubs Course Course Level of Care: Express Care Visit Vital Signs Vital signs: Vital Signs Temperature 36.6 C 08/18/25 10:54 Pulse Rate 84 08/18/25 10:54 Respiratory Rate 16 08/18/25 10:54 Blood Pressure 129/85 08/18/25 10:54 Pulse Oximetry 100 08/18/25 10:54 Oxygen Delivery Room Air 08/18/25 10:54 Temperature 36.6 C 08/18/25 10:54 Pulse Rate 84 08/18/25 10:54 Respiratory Rate 16 08/18/25 10:54 Blood Pressure 129/85 08/18/25 10:54 Pulse Oximetry 100 08/18/25 10:54 Oxygen Delivery Room Air 08/18/25 10:54 [facility] MDM Narrative Medical decision making narrative: At the time of visit patient is resting comfortably on the exam table. Patient appears to be nontoxic. Complaints of flu-like symptoms x2 days. She reports a lot of people at work been sick with the symptoms. States she is having headache, nasal congestion, chills, body aches, and feeling fatigued. Has taken [id number]-[id number] cold medications without relief. On exam patient has TMs intact and clear, clear nasal drainage, mild anterior turbinate inflammation, oral pharynx with postnasal drip, the, lung sounds are clear, heart rates regular rate and rhythm. COVID and influenza testing was ordered. Labs: COVID and influenza testing was performed and negative in the clinic today. Plan: I suspect patient has URI/viral syndrome. Work note was given. Suppor tive measures were discussed with the patient and they voiced understanding discharge instructions and agrees to treatment plan. Return precautions reviewed Differential Diagnosis Differential Diagnosis: Differential diagnostic considerations for upper respiratory infection include upper respiratory infection, croup, otitis media, sinusitis, viral infection, bronchitis, influenza, pharyngitis, strep, uvulitis. Lab Data Labs: Lab Results 08/18/25 Range/Units 10:52 POC Influenza A Ag Negative (Negative) POC Influenza B Ag Negative (Negative) POC SARS CoV-2 Ag Negative (Negative) Discharge Plan Discharge Clinical Impression: Viral infection Upper respiratory infection Qualifiers: URI type: unspecified URI Qualified Code(s): J06.9 - Acute upper respiratory infection, unspecified Pharyngitis Qualifiers: Pharyngitis/tonsillitis etiology: unspecified etiology Qualified Code(s): J02.9 - Acute pharyngitis, unspecified Patient Disposition: Home Condition: Stable Instructions: Antibiotic Form, Pharyngitis (ED), Viral Syndrome (ED), Cold Symptoms (ED) Additional Instructions: COVID and influenza testing was negative in the clinic today. Lung sounds are clear and there is no sign of bacterial infection in the clinic today. May take DayQuil/NyQuil for cold/flu symptoms. Increase fluids and stay well hydrated May take Tylenol or motrin as directed on bottle for pain/fever May use Flonase 1 spray in each nare daily May take OTC antihistamines such as Zyrtec or Claritin daily as directed on bottle May apply Vicks vapor rub to chest to open sinuses Sinus rinses for congestion Cepacol spray, cough drops, throat lozenges, warm tea with honey/lemon, gargle salt water to soothe throat BRAT diet for diarrhea Clear liquids x 24 hours then advance as tolerated for nausea/vomiting Go to the ED if you develop a worsening in your condition- high fever not controlled by Tylenol or Motrin, dehydration, weakness, lethargy, shortness of breath, or chest pain. Follow up with your PCP in 3-5 days if symptoms persist. Patient Language: Gabonese Prescriptions: No Action No Home Medications Follow-up/Referrals: Mohan,Shaunna Neri [employer] [Primary Care Provider, Unknown] Stand Alone Forms: Work/School Release IP Time of Disposition: 11:11 Quality NIHSS Nursing Documentation ED NIHSS nursing documentation: reviewed/agree
[2025-08-18 10:54] VITALS: BP 129/85; PULSE 84; RESP 16; TEMP 36.6; O2SAT 100
[2025-08-18 11:14] LABS: EDCOVIDSCREEN Negative (Negative); EDINFLUASCREEN Negative (Negative); EDINFLUBSCREEN Negative (Negative)
== END 2025-08-18 11:16 | disposition home or self-care (01) ==
PROVIDERS: Emergency Provider Nurse Practitioner Family; PCP Nurse Practitioner Family
DX: J06.9 Acute upper respiratory infection, unspecified (principal); J02.9 Acute pharyngitis, unspecified; F17.210 Nicotine dependence, cigarettes, uncomplicated
CPT/HCPCS: 87426; 87804; 99212; G0463